=== PATIENT | female | born 1950 | race Caucasian/White ===

== ENCOUNTER 2017-10-31 09:24 | Inpatient (IN) | payer OTHER ==
[~2017-10-31] VITALS: Ht 152.4 cm; Wt 50.3 kg
[2017-10-31] MEDS ORDERED: SODIUM CHLORIDE 0.9% 1,000 ML IV ONE ×2 (09:51→11:31)
[2017-10-31] MEDS ORDERED: PANTOPRAZOLE SODIUM 40 MG/VIAL IV STA (09:51)
[2017-10-31 10:12] LABS: BASOPHILS % 0.3 % (0.0-2.0); EOSINOPHILS % 0.6 % (0.0-5.0); HEMATOCRIT. 23.1 % (36.0-48.0); HEMOGLOBIN. 7.8 g/dL (12.0-16.0); MEAN CORPUSCULAR HEMOGLOBIN 33.7 pg (28.0-32.0); MEAN CORPUSCULAR VOLUME 99.6 fL (81.0-99.0); MEAN PLATELET VOLUME 9.2 fl (7.4-10.4); MONOCYTES % 6.9 % (2.0-8.0); NEUTROPHILS % 74.2 % (40.0-76.0); PLATELET 166 x1000/uL (130-400); RED BLOOD CELL COUNT 2.31 mill/uL (4.2-5.4); RED CELL DISTRIBUTION WIDTH 15.9 % (11.6-14.6)
[2017-10-31 10:18] LABS: CHLORIDE 99 mEq/L (98-107)
[2017-10-31 10:19] LABS: INR 1.1; PROTHROMBIN TIME 11.4 sec (9.4-11.6)
[2017-10-31] MEDS ORDERED: ONDANSETRON HCL 4MG/2ML VIAL IV ONE (10:30)
[2017-10-31 21:20] VITALS: BP 112/52
[2017-11-01] VITALS (19 sets, daily range): BP systolic 87–146; BP diastolic 42–73
[2017-11-01] MEDS ORDERED: DEXTROSE 50% WATER 50ML SYRINGE IV PRN (00:15)
[2017-11-01] MEDS ORDERED: MORPHINE SULFATE 4 MG/ML CPJ (NOT FOR IM USE) IV PRN (00:15)
[2017-11-01] MEDS ORDERED: BLOOD SUGAR DIAGNOSTIC STRIP TEST SCH ×2 (00:20→07:30)
[2017-11-01] MEDS ORDERED: ONDANSETRON HCL 4MG/2ML VIAL IV PRN (00:30)
[2017-11-01] MEDS: ACETAMINOPHEN 650MG/20.3ML UDC PO PRN (00:32)
[2017-11-01] MEDS: SODIUM CHL 0.9% + KCL 20MEQ/L 1,000 ML IV SCH ×2 (00:48→15:20)
[2017-11-01] MEDS ORDERED: LEVOFLOXACIN 500MG PREMIX 100 ML IV SCH (01:00)
[2017-11-01] MEDS: BLOOD SUGAR DIAGNOSTIC STRIP TEST SCH ×5 (01:00→23:26)
[2017-11-01 01:02] LABS: BASOPHILS % 0.1 % (0.0-2.0); EOSINOPHILS % 0.1 % (0.0-5.0); HEMOGLOBIN. 7.2 g/dL (12.0-16.0); LYMPHOCYTES % 10.9 % (20.0-50.0); MEAN CORPUSCULAR HEMOGLOBIN 32.4 pg (28.0-32.0); MEAN PLATELET VOLUME 9.6 fl (7.4-10.4); MONOCYTES % 4.5 % (2.0-8.0); NEUTROPHILS % 84.4 % (40.0-76.0); PLATELET 136 x1000/uL (130-400); RED BLOOD CELL COUNT 2.23 mill/uL (4.2-5.4); RED CELL DISTRIBUTION WIDTH 17.9 % (11.6-14.6)
[2017-11-01] MEDS: INSULIN LISPRO 100 UNITS/ML SUBCUT SCH ×5 (01:09→23:26)
[2017-11-01 01:20] LABS: HEMATOCRIT. 20.9 % (36.0-48.0)
[2017-11-01] MEDS ORDERED: METF850T2 PO (02:56)
[2017-11-01] MEDS ORDERED: ASCO500C18 PO (02:56)
[2017-11-01] MEDS ORDERED: ATOR20TA65 PO (02:56)
[2017-11-01] MEDS ORDERED: ASPI-1159 PO (02:56)
[2017-11-01] MEDS ORDERED: FERR325T6 PO (02:56)
[2017-11-01] MEDS ORDERED: BENA1TAB18 PO (02:56)
[2017-11-01] MEDS ORDERED: INSULIN LISPRO 100 UNITS/ML SUBCUT SCH (08:00)
[2017-11-01] MEDS ORDERED: PANTOPRAZOLE SODIUM 40 MG/VIAL IV SCH (09:00)
[2017-11-01 09:53] LABS: BASOPHILS % 0.2 % (0.0-2.0); EOSINOPHILS % 0.1 % (0.0-5.0); HEMATOCRIT. 30.7 % (36.0-48.0); LYMPHOCYTES % 16.2 % (20.0-50.0); MEAN CORPUSCULAR HEMOGLOBIN 31.8 pg (28.0-32.0); MEAN CORPUSCULAR VOLUME 90.7 fL (81.0-99.0); MEAN PLATELET VOLUME 9.6 fl (7.4-10.4); NEUTROPHILS % 76.5 % (40.0-76.0); PLATELET 108 x1000/uL (130-400); RED BLOOD CELL COUNT 3.39 mill/uL (4.2-5.4); RED CELL DISTRIBUTION WIDTH 17.1 % (11.6-14.6)
[2017-11-01 09:57] LABS: HEMOGLOBIN. 10.8 g/dL (12.0-16.0)
[2017-11-01 10:01] LABS: CHLORIDE 111 mEq/L (98-107)
[2017-11-01 10:08] LABS: LDL CHOLESTEROL 36 mg/dL (5-100)
[2017-11-01 10:09] LABS: HDL CHOLESTEROL 40 mg/dL (40-59)
[2017-11-01] MEDS ORDERED: IOHEXOL-300 100 ML BOTTLE ONE (10:22)
[2017-11-01 10:34] LABS: HEPATITIS B SURFACE ANTIGEN NEGATIVE
[2017-11-01 11:02] LABS: HEPATITIS B CORE AB IGM NEGATIVE
[2017-11-01 11:04] LABS: HEPATITIS A AB IGM NEGATIVE (NEGATIVE)
[2017-11-01] MEDS: METRONIDAZOLE 500 MG PREMIX 100 ML IV SCH ×2 (16:07→21:09)
[2017-11-01 17:44] LABS: HEMATOCRIT 31.3 % (36.0-48.0); HEMOGLOBIN 10.8 g/dL (12.0-16.0)
[2017-11-01 21:23] LABS: TOTAL IRON BINDING CAPACITY 244 ug/dL (250-450)
[2017-11-01 21:57] LABS: FERRITIN 28 ng/mL (10-291)
[2017-11-01 22:07] LABS: HEMATOCRIT 28.6 % (36.0-48.0); HEMOGLOBIN 9.8 g/dL (12.0-16.0)
[2017-11-01 22:23] LABS: FOLIC ACID (FOLATE) SERUM > 20.00 ng/mL (>5.38)
[2017-11-01] MEDS: LEVOFLOXACIN 250MG PREMIX 50 ML IV SCH (23:13)
[2017-11-01] MEDS: PANTOPRAZOLE SODIUM 40 MG/VIAL IV SCH (23:13)
[2017-11-02] VITALS (15 sets, daily range): BP systolic 98–130; BP diastolic 55–69
[2017-11-02 01:09] LABS: HEMATOCRIT 26.1 % (36.0-48.0); HEMOGLOBIN 9.2 g/dL (12.0-16.0)
[2017-11-02] MEDS: METRONIDAZOLE 500 MG PREMIX 100 ML IV SCH ×3 (05:25→21:17)
[2017-11-02] MEDS: BLOOD SUGAR DIAGNOSTIC STRIP TEST SCH ×3 (05:25→17:55)
[2017-11-02] MEDS: INSULIN LISPRO 100 UNITS/ML SUBCUT SCH ×3 (06:00→17:55)
[2017-11-02] MEDS: SODIUM CHL 0.9% + KCL 20MEQ/L 1,000 ML IV SCH ×2 (06:28→21:05)
[2017-11-02 06:32] LABS: INR 1.2; PARTIAL THROMBOPLASTIN TIME 23.6 sec (23.4-31.0); PROTHROMBIN TIME 12.3 sec (9.4-11.6)
[2017-11-02 07:10] LABS: HEMATOCRIT 25.6 % (36.0-48.0); HEMOGLOBIN 8.7 g/dL (12.0-16.0); MEAN CORPUSCULAR HEMOGLOBIN 31.2 pg (28.0-32.0); MEAN CORPUSCULAR VOLUME 91.7 fL (81.0-99.0); PLATELET 90 x1000/uL (130-400); RED CELL DISTRIBUTION WIDTH 18.7 % (11.6-14.6)
[2017-11-02 07:16] LABS: CHLORIDE 116 mEq/L (98-107)
[2017-11-02 07:26] LABS: CREATINE KINASE 111 IU/L (26-192)
[2017-11-02] MEDS: PANTOPRAZOLE SODIUM 40 MG/VIAL IV SCH ×2 (08:50→20:21)
[2017-11-02 13:29] LABS: HEMATOCRIT 25.2 % (36.0-48.0); HEMOGLOBIN 8.9 g/dL (12.0-16.0)
[2017-11-02 17:05] LABS: VITAMIN B12 SERUM 1205 pg/mL (211-911)
[2017-11-02] MEDS ORDERED: MIDAZOLAM HCL 5 MG/5 ML VIAL ONE (18:34)
[2017-11-02] MEDS ORDERED: FENTANYL CITRATE/PF 50MCG/ML 2ML VIAL ONE (18:34)
[2017-11-02] MEDS: ACETAMINOPHEN 650MG/20.3ML UDC PO PRN (20:17)
[2017-11-02 22:41] LABS: HEMATOCRIT 24.8 % (36.0-48.0); HEMOGLOBIN 8.4 g/dL (12.0-16.0)
[2017-11-02] MEDS: LEVOFLOXACIN 250MG PREMIX 50 ML IV SCH (22:55)
[2017-11-02] MEDS ORDERED: OCTREOTIDE ACETATE 50 MCG/ML 1ML IV NR (23:00)
[2017-11-02] MEDS: OCTREOTIDE 1,000 MCG in SODIUM CHLORIDE 0.9% 98 ML IV SCH (23:54)
[2017-11-03] VITALS (13 sets, daily range): BP systolic 108–152; BP diastolic 55–74
[2017-11-03] MEDS: INSULIN LISPRO 100 UNITS/ML SUBCUT SCH ×5 (00:10→23:03)
[2017-11-03] MEDS: ACETAMINOPHEN 650MG/20.3ML UDC PO PRN (01:58)
[2017-11-03] MEDS: METRONIDAZOLE 500 MG PREMIX 100 ML IV SCH ×3 (05:08→21:34)
[2017-11-03 06:30] LABS: INR 1.2; PARTIAL THROMBOPLASTIN TIME 23.4 sec (23.4-31.0); PROTHROMBIN TIME 12.1 sec (9.4-11.6)
[2017-11-03 06:34] LABS: HEMATOCRIT 24.1 % (36.0-48.0); HEMOGLOBIN 8.1 g/dL (12.0-16.0); MEAN CORPUSCULAR HEMOGLOBIN 31.3 pg (28.0-32.0); MEAN CORPUSCULAR VOLUME 93.3 fL (81.0-99.0); PLATELET 95 x1000/uL (130-400); RED BLOOD CELL COUNT 2.59 mill/uL (4.2-5.4); RED CELL DISTRIBUTION WIDTH 18.8 % (11.6-14.6)
[2017-11-03] MEDS: BLOOD SUGAR DIAGNOSTIC STRIP TEST SCH ×5 (07:30→21:34)
[2017-11-03] MEDS: PANTOPRAZOLE SODIUM 40 MG/VIAL IV SCH ×2 (08:31→21:33)
[2017-11-03] MEDS: SODIUM CHL 0.9% + KCL 20MEQ/L 1,000 ML IV SCH ×2 (09:10→21:34)
[2017-11-03 09:56] LABS: CHLORIDE 117 mEq/L (98-107)
[2017-11-03] MEDS ORDERED: MAGNESIUM 1 G PREMIX 100 ML IV NR (13:00)
[2017-11-03 17:13] LABS: HEMATOCRIT 25.4 % (36.0-48.0); HEMOGLOBIN 8.5 g/dL (12.0-16.0)
[2017-11-03 17:23] LABS: AMMONIA 56 uMol/L (<32)
[2017-11-03] MEDS: OCTREOTIDE 1,000 MCG in SODIUM CHLORIDE 0.9% 98 ML IV SCH (17:48)
[2017-11-03 21:09] LABS: HEPATITIS B CORE AB IGM NEGATIVE
[2017-11-03] MEDS: LACTULOSE 20G/30ML UDC PO SCH (21:34)
[2017-11-03] MEDS: LEVOFLOXACIN 250MG PREMIX 50 ML IV SCH (22:31)
[2017-11-04] VITALS (10 sets, daily range): BP systolic 114–148; BP diastolic 59–77
[2017-11-04] MEDS: METRONIDAZOLE 500 MG PREMIX 100 ML IV SCH ×2 (06:03→14:35)
[2017-11-04] MEDS: LACTULOSE 20G/30ML UDC PO SCH ×3 (06:03→20:44)
[2017-11-04 07:39] LABS: HEMATOCRIT 24.5 % (36.0-48.0); HEMOGLOBIN 8.5 g/dL (12.0-16.0); MEAN CORPUSCULAR HEMOGLOBIN 32.3 pg (28.0-32.0); MEAN CORPUSCULAR VOLUME 93.4 fL (81.0-99.0); PLATELET 132 x1000/uL (130-400); RED BLOOD CELL COUNT 2.62 mill/uL (4.2-5.4); RED CELL DISTRIBUTION WIDTH 18.3 % (11.6-14.6)
[2017-11-04 07:49] LABS: CHLORIDE 116 mEq/L (98-107)
[2017-11-04] MEDS: INSULIN LISPRO 100 UNITS/ML SUBCUT SCH ×4 (08:00→20:47)
[2017-11-04] MEDS: BLOOD SUGAR DIAGNOSTIC STRIP TEST SCH ×4 (08:00→20:47)
[2017-11-04 08:35] LABS: AMMONIA 35 uMol/L (<32)
[2017-11-04] MEDS: PANTOPRAZOLE SODIUM 40 MG/VIAL IV SCH ×2 (09:25→20:44)
[2017-11-04 13:08] LABS: FECAL FAT NEUTRAL Normal (.); FECAL FAT TOTAL Normal (.)
[2017-11-04] MEDS: PROPRANOLOL HCL 10MG TABLET PO SCH (13:09)
[2017-11-04 15:12] LABS: ATYPICAL pANCA <1:20 titer (Neg:<1:20)
[2017-11-04] MEDS: SODIUM CHL 0.9% + KCL 20MEQ/L 1,000 ML IV SCH (16:43)
[2017-11-04] MEDS: OCTREOTIDE 1,000 MCG in SODIUM CHLORIDE 0.9% 98 ML IV SCH (17:55)
[2017-11-05] VITALS (10 sets, daily range): BP systolic 99–142; BP diastolic 48–79
[2017-11-05] MEDS: LEVOFLOXACIN 250MG PREMIX 50 ML IV SCH (01:54)
[2017-11-05] MEDS: METRONIDAZOLE 500 MG PREMIX 100 ML IV SCH ×3 (01:54→13:03)
[2017-11-05 04:15] LABS: OVA & PARASITE EXAM Final report (.)
[2017-11-05] MEDS: LACTULOSE 20G/30ML UDC PO SCH (05:28)
[2017-11-05 06:17] LABS: AMMONIA 19 uMol/L (<32)
[2017-11-05 07:26] LABS: HEMATOCRIT 23.5 % (36.0-48.0); MEAN CORPUSCULAR HEMOGLOBIN 31.9 pg (28.0-32.0); PLATELET 141 x1000/uL (130-400); RED CELL DISTRIBUTION WIDTH 18.7 % (11.6-14.6)
[2017-11-05] MEDS: INSULIN LISPRO 100 UNITS/ML SUBCUT SCH ×2 (07:30→13:05)
[2017-11-05 07:34] LABS: CHLORIDE 117 mEq/L (98-107)
[2017-11-05] MEDS: BLOOD SUGAR DIAGNOSTIC STRIP TEST SCH ×2 (07:42→12:31)
[2017-11-05] MEDS ORDERED: PROPRANOLOL HCL 10MG TABLET PO SCH (09:00)
[2017-11-05] MEDS: PROPRANOLOL HCL 10MG TABLET PO SCH (09:37)
[2017-11-05] MEDS: PANTOPRAZOLE SODIUM 40 MG/VIAL IV SCH (09:37)
[2017-11-05] MEDS: SODIUM CHL 0.9% + KCL 20MEQ/L 1,000 ML IV SCH (13:03)
[2017-11-05 13:06] LABS: SACCHAROMYCES CEREVISIAE IGM 152.9 Units (0.0-24.9)
[2017-11-05 13:09] LABS: HEMATOCRIT 24.1 % (36.0-48.0)
[2017-11-06 19:07] LABS: ANTI-NUCLEAR ANTIBODIES DIRECT Positive (Negative)
[2017-11-08 13:07] LABS: MITOCHONDRIAL M2 AB 120.8 Units (0.0-20.0)
== END 2017-11-05 17:10 | disposition home or self-care (01) | DRG 432 ==
LOC: ER 09:24 → 5EST 11:31 → EDBEDREQ 16:34 → EDBEDREQTM 16:34 → ENRESERV 19:46 → EDBEDREQ 21:15 → EDBEDREQTM 21:16
PROVIDERS: ADMIT Internal Medicine; ATTEND Internal Medicine
PROC: 30233N1 Transfusion of Nonautologous Red Blood Cells into Peripheral Vein, Percutaneous Approach (ICD-10-PCS; principal; 2017-10-31)
PROC: 06L38CZ Occlusion of Esophageal Vein with Extraluminal Device, Via Natural or Artificial Opening Endoscopic (ICD-10-PCS; 2017-11-02)
PROC: 0DB68ZX Excision of Stomach, Via Natural or Artificial Opening Endoscopic, Diagnostic (ICD-10-PCS; 2017-11-02)
DX: K74.60 Unspecified cirrhosis of liver (principal); I85.01 Esophageal varices with bleeding; E43 Unspecified severe protein-calorie malnutrition; K76.6 Portal hypertension; E72.20 Disorder of urea cycle metabolism, unspecified; K25.4 Chronic or unspecified gastric ulcer with hemorrhage; R18.8 Other ascites; E11.319 Type 2 diabetes mellitus with unspecified diabetic retinopathy without macular edema; E83.42 Hypomagnesemia; D64.9 Anemia, unspecified; K52.9 Noninfective gastroenteritis and colitis, unspecified; H54.62 Unqualified visual loss, left eye, normal vision right eye; I10 Essential (primary) hypertension; M19.90 Unspecified osteoarthritis, unspecified site; E78.5 Hyperlipidemia, unspecified; K44.9 Diaphragmatic hernia without obstruction or gangrene; K57.90 Diverticulosis of intestine, part unspecified, without perforation or abscess without bleeding; E11.36 Type 2 diabetes mellitus with diabetic cataract; E78.00 Pure hypercholesterolemia, unspecified; E86.9 Volume depletion, unspecified; H91.90 Unspecified hearing loss, unspecified ear; K31.9 Disease of stomach and duodenum, unspecified; K40.90 Unilateral inguinal hernia, without obstruction or gangrene, not specified as recurrent; Z79.82 Long term (current) use of aspirin; Z86.010 Personal history of colon polyps; Z79.84 Long term (current) use of oral hypoglycemic drugs; Z79.899 Other long term (current) drug therapy; G90.8 Other disorders of autonomic nervous system
CPT/HCPCS: 36415; 36430; 70450; 71045; 74178; 76700; 78278; 80048; 80053; 80061; 80076; 82140; 82248; 82270; 82390; 82550; 82607; 82705; 82728; 82746; 82962; 83036; 83516; 83540; 83550; 83690; 83735; 84443; 84484; 85014; 85018; 85025; 85027; 85044; 85610; 85730; 86038; 86256; 86671; 86705; 86709; 86803; 86850; 86900; 86920; 87040; 87177; 87209; 87340; 87493; 88305; 88313; 89055; 93005; 93306; 96361; 96374; 96375; 99291; A9560; C9113; J1815; J1956; J2250; J2354; J2405; J3010; J3475; J3480; J3490; J7030; J7050; P9016; Q9967

== ENCOUNTER 2020-01-15 01:44 | Emergency (ER) | payer MEDICARE, OTHER ==
[~2020-01-15] VITALS: Ht 152.4 cm; Wt 50.0 kg
[~2020-01-15 01:44] MED LIST: ASCO500C18 PO; ATOR20TA65 PO; BENA1TAB18 PO; FERR325T6 PO; METF-415 PO
[2020-01-15] MEDS ORDERED: FAMOTIDINE 20MG/2ML VIAL IV STA (02:07)
[2020-01-15 02:47] LABS: BASOPHILS % 0.3 % (0.0-2.0); EOSINOPHILS % 2.5 % (0.0-5.0); HEMATOCRIT. 30.6 % (36.0-48.0); HEMOGLOBIN. 10.9 g/dL (12.0-16.0); LYMPHOCYTES % 28.8 % (20.0-50.0); MEAN CORPUSCULAR HEMOGLOBIN 36.8 pg (28.0-32.0); MEAN CORPUSCULAR VOLUME 103.1 fL (81.0-99.0); MEAN PLATELET VOLUME 9.4 fl (7.4-10.4); MONOCYTES % 13.3 % (2.0-8.0); NEUTROPHILS % 55.1 % (40.0-76.0); PLATELET 90 x1000/uL (130-400); RED BLOOD CELL COUNT 2.97 mill/uL (4.2-5.4); RED CELL DISTRIBUTION WIDTH 14.5 % (11.6-14.6)
[2020-01-15 02:51] LABS: CHLORIDE 104 mEq/L (98-107)
[2020-01-15 02:54] LABS: INR 1.2; PROTHROMBIN TIME 12.1 sec (9.6-11.0)
[2020-01-15 02:56] LABS: ETHANOL BLOOD < 10 mg/dL
[2020-01-15 03:31] LABS: CLARITY URINE CLEAR (CLEAR); COLOR URINE YELLOW (YELLOW); KETONES URINE NEGATIVE (NEGATIVE); LEUKOCYTE ESTERASE URINE NEGATIVE (NEGATIVE); NITRITE URINE NEGATIVE (NEGATIVE); OCCULT BLOOD URINE 2+ (NEGATIVE); PROTEIN URINE NEGATIVE (NEGATIVE); SPECIFIC GRAVITY URINE 1.004 (1.005-1.030); UROBILINOGEN URINE 0.2 E.U./dL (0.2-1.0)
[2020-01-15 03:34] LABS: *AMPHETAMINES SCREEN URINE NEGATIVE (NEGATIVE); *BARBITURATES SCREEN URINE NEGATIVE (NEGATIVE); *BENZODIAZEPINES SCREEN URINE NEGATIVE (NEGATIVE)
[2020-01-15 03:35] LABS: *COCAINE SCREEN URINE NEGATIVE (NEGATIVE); CANNABINOID URINE SCREEN NEGATIVE (NEGATIVE); METHADONE URINE SCREEN NEGATIVE (NEGATIVE); OPIATES URINE SCREEN NEGATIVE (NEGATIVE); PHENCYCLIDINE URINE SCREEN NEGATIVE (NEGATIVE)
[2020-01-15 05:00] VITALS: BP 155/71
== END 2020-01-15 05:02 | disposition home or self-care (01) ==
LOC: ER 01:44
DX: R11.2 Nausea with vomiting, unspecified (principal); D64.9 Anemia, unspecified; H26.9 Unspecified cataract; H54.7 Unspecified visual loss; E11.9 Type 2 diabetes mellitus without complications
CPT/HCPCS: 36415; 71045; 80053; 80305; 80320; 81003; 83605; 83690; 83880; 84484; 85025; 85610; 93005; 96374; 99285; J3490; G0480

== ENCOUNTER 2021-10-28 15:42 | Inpatient (IN) | payer MEDICARE ==
[~2021-10-28] VITALS: Ht 152.4 cm; Wt 46.7 kg
[~2021-10-28 15:42] MED LIST changes: +LACT10SO6 MT; +LOSA50TA41 PO; +URSO300C4 PO
[2021-10-28 18:36] LABS: BASOPHILS % 0.4 % (0.0-2.0); EOSINOPHILS % 5.9 % (0.0-5.0); HEMATOCRIT. 25.4 % (36.0-48.0); HEMOGLOBIN. 8.1 g/dL (12.0-16.0); LYMPHOCYTES % 21.2 % (20.0-50.0); MEAN CORPUSCULAR HEMOGLOBIN 35.7 pg (28.0-32.0); MEAN PLATELET VOLUME 9.1 fl (7.4-10.4); MONOCYTES % 10.9 % (2.0-8.0); NEUTROPHILS % 61.6 % (40.0-76.0); PLATELET 89 x1000/uL (130-400); RED BLOOD CELL COUNT 2.27 mill/uL (4.2-5.4)
[2021-10-28 18:50] LABS: CHLORIDE 118 mEq/L (98-107)
[2021-10-28 19:17] LABS: PLATELET ESTIMATE DECREASED
[2021-10-28 19:27] LABS: BG BASE EXCESS -20.8 mmol/L (-2.0-2.0); BG CARBOXYHEMOGLOBIN 0.2 % (0.5-1.5); BG FRACTION INSPIRED OXYGEN 36; BG HCO3 ACT 5.8 mmol/L (22.0-26.0); BG METHEMOGLOBIN 0.7 % (0.0-1.5); BG OXYHEMOGLOBIN 98.1 % (94.0-97.0); BG PCO2 16.5 mmHg (35.0-45.0); BG PH 7.167 (7.350-7.450); BG PO2 202.1 mmHg (75.0-100.0); BG SAMPLE SITE RIGHT BRACHIAL; BG TOTAL HEMOGLOBIN 8.3 g/dL (12.0-18.0); BG VENT MODE NASAL CANNULA
[2021-10-28] MEDS ORDERED: ASPIRIN 325MG EC TABLET PO ONE (20:45)
[2021-10-28 21:21] LABS: BG BASE EXCESS -20.1 mmol/L (-2.0-2.0); BG CARBOXYHEMOGLOBIN 0.3 % (0.5-1.5); BG DEOXYHEMOGLOBIN 0.4 % (0.0-5.0); BG FRACTION INSPIRED OXYGEN 100; BG HCO3 ACT 6.5 mmol/L (22.0-26.0); BG METHEMOGLOBIN 0.4 % (0.0-1.5); BG OXYGEN SATURATION 99.6 % (92.0-98.5); BG OXYHEMOGLOBIN 98.9 % (94.0-97.0); BG PCO2 18.3 mmHg (35.0-45.0); BG PH 7.171 (7.350-7.450); BG TOTAL HEMOGLOBIN 8.3 g/dL (12.0-18.0); BG VENT MODE MASK - BIPAP
[2021-10-28] MEDS ORDERED: VANCOMYCIN 1G PREMIX 200 ML IV ONE (21:45)
[2021-10-28] MEDS ORDERED: PIPERACILLIN/TAZ 3.375G PREMIX 50 ML IV ONE (21:45)
[2021-10-28] MEDS ORDERED: VANCOMYCIN 1GM PMX (XELLIA) 200 ML IV NR (22:00)
[2021-10-28 22:30] VITALS: BP 155/73
[2021-10-28 23:00] VITALS: BP 152/64
[2021-10-28] MEDS ORDERED: DEXTROSE 50% WATER 50ML SYRINGE IV PRN (23:30)
[2021-10-28] MEDS ORDERED: TRAMADOL 50MG TABLET PO PRN (23:30)
[2021-10-28] MEDS ORDERED: CLONIDINE 0.1MG TABLET PO PRN (23:30)
[2021-10-28] MEDS ORDERED: SODIUM BICARBONATE 8.4% 1 MEQ/ML 50ML SYR IV NR (23:30)
[2021-10-29] VITALS (12 sets, daily range): BP systolic 108–150; BP diastolic 54–80
[2021-10-29] MEDS ORDERED: VANCOMYCIN 1GM PMX (XELLIA) 200 ML IV NR (00:30)
[2021-10-29] MEDS: SODIUM BICARBONATE 150 MEQ in SODIUM CHLORIDE 0.45% 1,000 ML IV SCH ×2 (01:30→18:22)
[2021-10-29 06:53] LABS: BASOPHILS % 0.4 % (0.0-2.0); EOSINOPHILS % 7.3 % (0.0-5.0); HEMATOCRIT. 23.6 % (36.0-48.0); HEMOGLOBIN. 7.7 g/dL (12.0-16.0); LYMPHOCYTES % 17.6 % (20.0-50.0); MEAN CORPUSCULAR HEMOGLOBIN 35.9 pg (28.0-32.0); MEAN CORPUSCULAR VOLUME 110.3 fL (81.0-99.0); MEAN PLATELET VOLUME 9.3 fl (7.4-10.4); MONOCYTES % 13.4 % (2.0-8.0); NEUTROPHILS % 61.3 % (40.0-76.0); PLATELET 70 x1000/uL (130-400); RED BLOOD CELL COUNT 2.14 mill/uL (4.2-5.4); RED CELL DISTRIBUTION WIDTH 16.5 % (11.6-14.6)
[2021-10-29 06:53] LABS: CLARITY URINE CLEAR (CLEAR); COLOR URINE YELLOW (YELLOW); KETONES URINE TRACE (NEGATIVE); LEUKOCYTE ESTERASE URINE TRACE (NEGATIVE); NITRITE URINE NEGATIVE (NEGATIVE); OCCULT BLOOD URINE 2+ (NEGATIVE); PROTEIN URINE 2+ (NEGATIVE); SPECIFIC GRAVITY URINE 1.016 (1.005-1.030); UROBILINOGEN URINE 0.2 E.U./dL (0.2-1.0)
[2021-10-29 07:10] LABS: CHLORIDE 120 mEq/L (98-107)
[2021-10-29] MEDS: PIPERACILLIN/TAZOBACTAM 3.375 G in DEXTROSE 5% WATER 50 ML IV SCH ×2 (08:55→22:44)
[2021-10-29 09:33] LABS: BG BASE EXCESS -14.7 mmol/L (-2.0-2.0); BG CARBOXYHEMOGLOBIN 0.3 % (0.5-1.5); BG DEOXYHEMOGLOBIN 0.5 % (0.0-5.0); BG HCO3 ACT 9.5 mmol/L (22.0-26.0); BG METHEMOGLOBIN 0.3 % (0.0-1.5); BG OXYGEN SATURATION 99.5 % (92.0-98.5); BG OXYHEMOGLOBIN 98.9 % (94.0-97.0); BG PCO2 17.9 mmHg (35.0-45.0); BG PH 7.341 (7.350-7.450); BG PO2 258.1 mmHg (75.0-100.0); BG SAMPLE SITE RIGHT RADIAL; BG TOTAL HEMOGLOBIN 7.3 g/dL (12.0-18.0); BG TOTAL RESPIRATORY RATE 20 b/min; BG VENT MODE MASK - BIPAP
[2021-10-29 12:14] LABS: HEMATOCRIT 25.4 % (36.0-48.0); HEMOGLOBIN 8.1 g/dL (12.0-16.0)
[2021-10-29 12:24] LABS: INR 1.2; PROTHROMBIN TIME 13.1 sec (9.6-11.0)
[2021-10-29] MEDS: INSULIN LISPRO 100 UNITS/ML SUBCUT SCH ×3 (12:38→22:08)
[2021-10-29] MEDS: BLOOD SUGAR DIAGNOSTIC STRIP TEST SCH ×4 (12:38→22:06)
[2021-10-29] MEDS ORDERED: HYDROCODONE/ACETAMINOPHEN 5/325MG TABLET PO PRN (13:00)
[2021-10-29] MEDS ORDERED: LACTULOSE 20G/30ML UDC PO SCH (13:00)
[2021-10-29] MEDS ORDERED: LORAZEPAM 2MG/ML CPJ IV PRN (13:00)
[2021-10-29] MEDS ORDERED: BISACODYL 10MG SUPP PR PRN (13:00)
[2021-10-29] MEDS ORDERED: IPRATROPIUM/ALBUTEROL 0.5-3(2.5)MG/3ML NEB HHN PRN (13:00)
[2021-10-29] MEDS: CIPROFLOXACIN 0.3% OPHTH SOLN 2.5ML LEFTEYE SCH ×2 (16:33→22:05)
[2021-10-29] MEDS: PANTOPRAZOLE SODIUM 40 MG/VIAL IV SCH (16:51)
[2021-10-29] MEDS ORDERED: NALOXONE HCL 0.4MG/ML VIAL IV PRN (18:00)
[2021-10-29] MEDS: LACTULOSE 20G/30ML UDC PO SCH (22:44)
[2021-10-30] VITALS (10 sets, daily range): BP systolic 92–139; BP diastolic 43–66
[2021-10-30] MEDS: LACTULOSE 20G/30ML UDC PO SCH ×4 (06:08→22:00)
[2021-10-30] MEDS: BLOOD SUGAR DIAGNOSTIC STRIP TEST SCH ×4 (07:30→21:43)
[2021-10-30 07:32] LABS: BASOPHILS % 0.5 % (0.0-2.0); EOSINOPHILS % 3.6 % (0.0-5.0); HEMATOCRIT. 22.8 % (36.0-48.0); HEMOGLOBIN. 7.5 g/dL (12.0-16.0); MEAN CORPUSCULAR HEMOGLOBIN 36.1 pg (28.0-32.0); MEAN CORPUSCULAR VOLUME 109.2 fL (81.0-99.0); MEAN PLATELET VOLUME 9.6 fl (7.4-10.4); MONOCYTES % 13.4 % (2.0-8.0); NEUTROPHILS % 64.5 % (40.0-76.0); PLATELET 75 x1000/uL (130-400); RED BLOOD CELL COUNT 2.09 mill/uL (4.2-5.4); RED CELL DISTRIBUTION WIDTH 15.8 % (11.6-14.6)
[2021-10-30] MEDS: INSULIN LISPRO 100 UNITS/ML SUBCUT SCH ×4 (08:00→21:57)
[2021-10-30] MEDS: PANTOPRAZOLE SODIUM 40 MG/VIAL IV SCH (08:06)
[2021-10-30] MEDS: CIPROFLOXACIN 0.3% OPHTH SOLN 2.5ML LEFTEYE SCH ×4 (08:07→21:43)
[2021-10-30] MEDS: PIPERACILLIN/TAZOBACTAM 3.375 G in DEXTROSE 5% WATER 50 ML IV SCH ×2 (08:07→21:42)
[2021-10-30] MEDS ORDERED: LIDOCAINE HCL 1% 10 MG/ML 10ML VIAL ONE (09:24)
[2021-10-30] MEDS ORDERED: SODIUM BICARBONATE 4% (2.4MEQ) 5ML VIAL IV ONE (09:25)
[2021-10-30 10:06] LABS: BG BASE EXCESS -10.4 mmol/L (-2.0-2.0); BG CARBOXYHEMOGLOBIN 0.3 % (0.5-1.5); BG DEOXYHEMOGLOBIN 1.8 % (0.0-5.0); BG FRACTION INSPIRED OXYGEN 21; BG HCO3 ACT 13.5 mmol/L (22.0-26.0); BG METHEMOGLOBIN 0.3 % (0.0-1.5); BG OXYGEN SATURATION 98.2 % (92.0-98.5); BG OXYHEMOGLOBIN 97.6 % (94.0-97.0); BG PCO2 22.8 mmHg (35.0-45.0); BG PH 7.389 (7.350-7.450); BG PO2 113.4 mmHg (75.0-100.0); BG SAMPLE SITE RIGHT RADIAL; BG VENT MODE ROOM AIR
[2021-10-30] MEDS ORDERED: SUCRALFATE 1 G/10 ML UDC PO NR (13:00)
[2021-10-30] MEDS: SODIUM BICARBONATE 150 MEQ in SODIUM CHLORIDE 0.45% 1,000 ML IV SCH (13:38)
[2021-10-30] MEDS ORDERED: VANCOMYCIN 500 MG in DEXT 5% WATER 100 ML IV SCH (18:00)
[2021-10-30] MEDS: IPRATROPIUM/ALBUTEROL 0.5-3(2.5)MG/3ML NEB HHN SCH (21:25)
[2021-10-31] VITALS (11 sets, daily range): BP systolic 107–149; BP diastolic 47–83
[2021-10-31] MEDS: IPRATROPIUM/ALBUTEROL 0.5-3(2.5)MG/3ML NEB HHN SCH ×4 (00:52→18:00)
[2021-10-31] MEDS: SODIUM BICARBONATE 150 MEQ in SODIUM CHLORIDE 0.45% 1,000 ML IV SCH ×2 (04:31→09:33)
[2021-10-31] MEDS: LACTULOSE 20G/30ML UDC PO SCH ×4 (04:31→22:32)
[2021-10-31 06:43] LABS: MEAN CORPUSCULAR HEMOGLOBIN 35.7 pg (28.0-32.0); MEAN CORPUSCULAR VOLUME 104.7 fL (81.0-99.0); MEAN PLATELET VOLUME 9.3 fl (7.4-10.4); PLATELET 57 x1000/uL (130-400); RED CELL DISTRIBUTION WIDTH 15.7 % (11.6-14.6)
[2021-10-31] MEDS: BLOOD SUGAR DIAGNOSTIC STRIP TEST SCH ×4 (07:30→21:50)
[2021-10-31 07:34] LABS: HEMATOCRIT. 19.9 % (36.0-48.0); HEMOGLOBIN. 6.8 g/dL (12.0-16.0)
[2021-10-31] MEDS: INSULIN LISPRO 100 UNITS/ML SUBCUT SCH ×4 (08:00→21:00)
[2021-10-31] MEDS ORDERED: POTASSIUM CHLORIDE 20MEQ TABLET SR PO SCH (09:00)
[2021-10-31] MEDS: PANTOPRAZOLE SODIUM 40 MG/VIAL IV SCH ×2 (09:30→21:50)
[2021-10-31] MEDS: CIPROFLOXACIN 0.3% OPHTH SOLN 2.5ML LEFTEYE SCH ×4 (09:30→21:50)
[2021-10-31] MEDS: PIPERACILLIN/TAZOBACTAM 3.375 G in DEXTROSE 5% WATER 50 ML IV SCH ×2 (09:31→21:50)
[2021-10-31] MEDS: DEXTROSE 5% WATER 1,000 ML IV SCH (11:40)
[2021-10-31 16:10] LABS: TOTAL IRON BINDING CAPACITY 200 ug/dL (250-450)
[2021-10-31 16:28] LABS: FOLIC ACID (FOLATE) SERUM >20 ng/mL ng/mL (>5.38)
[2021-10-31 16:32] LABS: FERRITIN 135 ng/mL (10-291)
[2021-10-31 16:40] LABS: VITAMIN B12 SERUM >2000 pg/mL pg/mL (211-911)
[2021-10-31] MEDS: OCTREOTIDE 1,000 MCG in SODIUM CHLORIDE 0.9% 98 ML IV SCH (18:59)
[2021-10-31 21:21] LABS: PLATELET ESTIMATE DECREASED
[2021-11-01] VITALS (8 sets, daily range): BP systolic 103–144; BP diastolic 57–77
[2021-11-01 03:03] LABS: HEMATOCRIT 28.3 % (36.0-48.0); HEMOGLOBIN 9.4 g/dL (12.0-16.0)
[2021-11-01] MEDS: LACTULOSE 20G/30ML UDC PO SCH ×3 (05:40→17:29)
[2021-11-01] MEDS: BLOOD SUGAR DIAGNOSTIC STRIP TEST SCH ×4 (07:30→21:00)
[2021-11-01] MEDS: INSULIN LISPRO 100 UNITS/ML SUBCUT SCH ×4 (08:00→21:56)
[2021-11-01 08:11] LABS: HEMATOCRIT. 29.4 % (36.0-48.0); HEMOGLOBIN. 9.9 g/dL (12.0-16.0); MEAN CORPUSCULAR HEMOGLOBIN 34.5 pg (28.0-32.0); MEAN CORPUSCULAR VOLUME 103.1 fL (81.0-99.0); MEAN PLATELET VOLUME 8.7 fl (7.4-10.4); PLATELET 55 x1000/uL (130-400); RED BLOOD CELL COUNT 2.86 mill/uL (4.2-5.4); RED CELL DISTRIBUTION WIDTH 18.7 % (11.6-14.6)
[2021-11-01] MEDS: PANTOPRAZOLE SODIUM 40 MG/VIAL IV SCH ×2 (08:48→21:54)
[2021-11-01] MEDS: PIPERACILLIN/TAZOBACTAM 3.375 G in DEXTROSE 5% WATER 50 ML IV SCH ×2 (08:49→21:54)
[2021-11-01] MEDS: CIPROFLOXACIN 0.3% OPHTH SOLN 2.5ML LEFTEYE SCH ×4 (08:49→21:54)
[2021-11-01] MEDS: IPRATROPIUM/ALBUTEROL 0.5-3(2.5)MG/3ML NEB HHN SCH ×4 (09:05→21:04)
[2021-11-01 12:14] LABS: HEMATOCRIT 30.5 % (36.0-48.0); HEMOGLOBIN 10.1 g/dL (12.0-16.0)
[2021-11-01] MEDS: OCTREOTIDE 1,000 MCG in SODIUM CHLORIDE 0.9% 98 ML IV SCH (13:07)
[2021-11-01 13:38] LABS: PLATELET ESTIMATE DECREASED
[2021-11-01 20:50] LABS: HEMATOCRIT 29.9 % (36.0-48.0); HEMOGLOBIN 9.9 g/dL (12.0-16.0)
[2021-11-02] VITALS (7 sets, daily range): BP systolic 117–141; BP diastolic 51–87
[2021-11-02 00:54] LABS: HEMATOCRIT 30.1 % (36.0-48.0)
[2021-11-02] MEDS: IPRATROPIUM/ALBUTEROL 0.5-3(2.5)MG/3ML NEB HHN SCH ×4 (02:42→20:36)
[2021-11-02] MEDS: DEXTROSE 5% WATER 1,000 ML IV SCH (04:20)
[2021-11-02 06:35] LABS: BASOPHILS % 0.6 % (0.0-2.0); EOSINOPHILS % 6.3 % (0.0-5.0); HEMATOCRIT. 28.3 % (36.0-48.0); HEMOGLOBIN. 9.4 g/dL (12.0-16.0); MEAN CORPUSCULAR HEMOGLOBIN 34.2 pg (28.0-32.0); MEAN CORPUSCULAR VOLUME 103.4 fL (81.0-99.0); MEAN PLATELET VOLUME 9.8 fl (7.4-10.4); MONOCYTES % 12.6 % (2.0-8.0); NEUTROPHILS % 67.5 % (40.0-76.0); PLATELET 57 x1000/uL (130-400); RED BLOOD CELL COUNT 2.73 mill/uL (4.2-5.4); RED CELL DISTRIBUTION WIDTH 19.5 % (11.6-14.6)
[2021-11-02] MEDS: BLOOD SUGAR DIAGNOSTIC STRIP TEST SCH ×4 (07:30→20:38)
[2021-11-02] MEDS: INSULIN LISPRO 100 UNITS/ML SUBCUT SCH ×4 (08:00→20:39)
[2021-11-02] MEDS: OCTREOTIDE 1,000 MCG in SODIUM CHLORIDE 0.9% 98 ML IV SCH (09:30)
[2021-11-02] MEDS: PIPERACILLIN/TAZOBACTAM 3.375 G in DEXTROSE 5% WATER 50 ML IV SCH ×2 (09:30→21:58)
[2021-11-02] MEDS: PANTOPRAZOLE SODIUM 40 MG/VIAL IV SCH ×2 (09:31→21:57)
[2021-11-02] MEDS: CIPROFLOXACIN 0.3% OPHTH SOLN 2.5ML LEFTEYE SCH ×4 (09:31→21:56)
[2021-11-02] MEDS: LACTULOSE 20G/30ML UDC PO SCH ×3 (09:31→21:58)
[2021-11-02 12:45] LABS: HEMATOCRIT 33.5 % (36.0-48.0)
[2021-11-02] MEDS ORDERED: NA PHOS,M-B/NA PHOS,DI-BA ENEMA 118ML PR SCH (13:00)
[2021-11-02 14:17] LABS: BG BASE EXCESS -8.3 mmol/L (-2.0-2.0); BG CARBOXYHEMOGLOBIN 0.3 % (0.5-1.5); BG FRACTION INSPIRED OXYGEN 21; BG HCO3 ACT 15.5 mmol/L (22.0-26.0); BG METHEMOGLOBIN 0.1 % (0.0-1.5); BG OXYHEMOGLOBIN 95.6 % (94.0-97.0); BG PCO2 27.2 mmHg (35.0-45.0); BG PH 7.375 (7.350-7.450); BG PO2 85.3 mmHg (75.0-100.0); BG SAMPLE SITE RIGHT RADIAL; BG TOTAL HEMOGLOBIN 10.9 g/dL (12.0-18.0); BG VENT MODE ROOM AIR
[2021-11-02] MEDS ORDERED: FUROSEMIDE 40MG/4ML VIAL IVP NR (16:00)
[2021-11-02] MEDS: ALBUMIN HUMAN 12.5GM/50ML (25%) IV SCH (21:57)
[2021-11-03] VITALS (9 sets, daily range): BP systolic 103–132; BP diastolic 52–73
[2021-11-03] MEDS: IPRATROPIUM/ALBUTEROL 0.5-3(2.5)MG/3ML NEB HHN SCH ×4 (02:15→21:42)
[2021-11-03] MEDS: OCTREOTIDE 1,000 MCG in SODIUM CHLORIDE 0.9% 98 ML IV SCH (05:00)
[2021-11-03 05:36] LABS: HEMATOCRIT. 28.1 % (36.0-48.0); HEMOGLOBIN. 9.4 g/dL (12.0-16.0); MEAN CORPUSCULAR VOLUME 102.1 fL (81.0-99.0); MEAN PLATELET VOLUME 8.7 fl (7.4-10.4); PLATELET 51 x1000/uL (130-400); RED BLOOD CELL COUNT 2.75 mill/uL (4.2-5.4); RED CELL DISTRIBUTION WIDTH 18.7 % (11.6-14.6)
[2021-11-03 05:43] LABS: CHLORIDE 112 mEq/L (98-107)
[2021-11-03] MEDS: LACTULOSE 20G/30ML UDC PO SCH ×3 (06:00→21:20)
[2021-11-03 06:06] LABS: INR 1.4; PROTHROMBIN TIME 14.3 sec (9.6-11.0)
[2021-11-03] MEDS: BLOOD SUGAR DIAGNOSTIC STRIP TEST SCH ×4 (07:57→21:21)
[2021-11-03] MEDS: INSULIN LISPRO 100 UNITS/ML SUBCUT SCH ×4 (08:00→21:00)
[2021-11-03] MEDS: PANTOPRAZOLE SODIUM 40 MG/VIAL IV SCH ×2 (08:31→21:21)
[2021-11-03] MEDS: PIPERACILLIN/TAZOBACTAM 3.375 G in DEXTROSE 5% WATER 50 ML IV SCH ×2 (08:31→21:20)
[2021-11-03] MEDS: CIPROFLOXACIN 0.3% OPHTH SOLN 2.5ML LEFTEYE SCH ×4 (08:31→21:21)
[2021-11-03] MEDS: ALBUMIN HUMAN 12.5GM/50ML (25%) IV SCH ×2 (12:31→21:21)
[2021-11-03 14:04] LABS: NUCLEATED RED BLOOD CELLS 1 /100 WBC; PLATELET ESTIMATE MARKEDLY DECREASED
[2021-11-03] MEDS ORDERED: PROPOFOL 200MG/20ML VIAL IV ONE (17:25)
[2021-11-03] MEDS ORDERED: MIDAZOLAM HCL 2 MG/2 ML VIAL ONE ×2 (17:27)
[2021-11-04] VITALS (9 sets, daily range): BP systolic 108–149; BP diastolic 58–82
[2021-11-04] MEDS: IPRATROPIUM/ALBUTEROL 0.5-3(2.5)MG/3ML NEB HHN SCH ×4 (02:21→21:16)
[2021-11-04] MEDS: LACTULOSE 20G/30ML UDC PO SCH ×3 (05:49→21:43)
[2021-11-04] MEDS: BLOOD SUGAR DIAGNOSTIC STRIP TEST SCH ×4 (07:30→21:00)
[2021-11-04] MEDS: INSULIN LISPRO 100 UNITS/ML SUBCUT SCH ×4 (08:00→20:46)
[2021-11-04] MEDS: PANTOPRAZOLE SODIUM 40 MG/VIAL IV SCH ×2 (09:00→20:12)
[2021-11-04] MEDS: ALBUMIN HUMAN 12.5GM/50ML (25%) IV SCH ×4 (09:00→20:13)
[2021-11-04] MEDS: CIPROFLOXACIN 0.3% OPHTH SOLN 2.5ML LEFTEYE SCH ×4 (09:02→20:13)
[2021-11-04 10:51] LABS: BASOPHILS % 0.4 % (0.0-2.0); EOSINOPHILS % 9.8 % (0.0-5.0); HEMATOCRIT. 27.5 % (36.0-48.0); HEMOGLOBIN. 9.1 g/dL (12.0-16.0); LYMPHOCYTES % 12.6 % (20.0-50.0); MEAN CORPUSCULAR HEMOGLOBIN 34.1 pg (28.0-32.0); MEAN CORPUSCULAR VOLUME 103.4 fL (81.0-99.0); MEAN PLATELET VOLUME 8.6 fl (7.4-10.4); MONOCYTES % 12.9 % (2.0-8.0); NEUTROPHILS % 64.3 % (40.0-76.0); RED BLOOD CELL COUNT 2.66 mill/uL (4.2-5.4)
[2021-11-04 10:55] LABS: CHLORIDE 112 mEq/L (98-107)
[2021-11-04 13:18] LABS: PLATELET ESTIMATE MARKEDLY DECREASED
[2021-11-04 13:19] LABS: PLATELET 40 x1000/uL (130-400)
[2021-11-04] MEDS ORDERED: LIDOCAINE HCL 1% 20ML VIAL (Pyxis) INJ ONE (14:01)
[2021-11-04] MEDS ORDERED: LIDOCAINE HCL 1% 10 MG/ML 10ML VIAL ONE (14:18)
[2021-11-04] MEDS: SODIUM BICARBONATE 650 MG TABLET PO SCH (17:01)
[2021-11-04] MEDS ORDERED: ALBUMIN HUMAN 12.5GM/50ML (25%) IV SCH (17:45)
[2021-11-04] MEDS ORDERED: ALBUMIN HUMAN 12.5GM/50ML (25%) IV ONE (19:59)
[2021-11-04] MEDS ORDERED: POTASSIUM CHLORIDE 20MEQ TABLET SR PO SCH (23:00)
[2021-11-05] VITALS (14 sets, daily range): BP systolic 120–150; BP diastolic 56–88
[2021-11-05] MEDS: IPRATROPIUM/ALBUTEROL 0.5-3(2.5)MG/3ML NEB HHN SCH ×3 (01:12→20:37)
[2021-11-05] MEDS: LACTULOSE 20G/30ML UDC PO SCH ×3 (05:35→21:40)
[2021-11-05 06:27] LABS: HEMATOCRIT. 25.5 % (36.0-48.0); HEMOGLOBIN. 8.6 g/dL (12.0-16.0); MEAN CORPUSCULAR HEMOGLOBIN 34.5 pg (28.0-32.0); PLATELET 68 x1000/uL (130-400); RED CELL DISTRIBUTION WIDTH 19.7 % (11.6-14.6)
[2021-11-05] MEDS: INSULIN LISPRO 100 UNITS/ML SUBCUT SCH ×4 (08:00→21:00)
[2021-11-05] MEDS: BLOOD SUGAR DIAGNOSTIC STRIP TEST SCH ×4 (08:26→21:00)
[2021-11-05] MEDS: ALBUMIN HUMAN 12.5GM/50ML (25%) IV SCH ×2 (10:14→17:30)
[2021-11-05] MEDS: SODIUM BICARBONATE 650 MG TABLET PO SCH ×3 (10:14→17:30)
[2021-11-05] MEDS: CIPROFLOXACIN 0.3% OPHTH SOLN 2.5ML LEFTEYE SCH ×2 (10:14→13:34)
[2021-11-05] MEDS: PANTOPRAZOLE SODIUM 40 MG/VIAL IV SCH ×2 (10:14→20:46)
[2021-11-05 10:54] LABS: PLATELET ESTIMATE DECREASED
[2021-11-06] VITALS (11 sets, daily range): BP systolic 135–153; BP diastolic 61–91
[2021-11-06] MEDS: IPRATROPIUM/ALBUTEROL 0.5-3(2.5)MG/3ML NEB HHN SCH ×4 (02:11→21:56)
[2021-11-06] MEDS: LACTULOSE 20G/30ML UDC PO SCH ×3 (05:38→20:45)
[2021-11-06] MEDS: BLOOD SUGAR DIAGNOSTIC STRIP TEST SCH ×4 (07:39→20:47)
[2021-11-06] MEDS: INSULIN LISPRO 100 UNITS/ML SUBCUT SCH ×4 (07:39→20:47)
[2021-11-06 08:19] LABS: HEMOGLOBIN. 8.7 g/dL (12.0-16.0); MEAN CORPUSCULAR HEMOGLOBIN 34.6 pg (28.0-32.0); MEAN CORPUSCULAR VOLUME 103.6 fL (81.0-99.0); MEAN PLATELET VOLUME 9.1 fl (7.4-10.4); PLATELET 51 x1000/uL (130-400); RED BLOOD CELL COUNT 2.51 mill/uL (4.2-5.4); RED CELL DISTRIBUTION WIDTH 19.5 % (11.6-14.6)
[2021-11-06] MEDS: SODIUM BICARBONATE 650 MG TABLET PO SCH ×2 (08:44→12:58)
[2021-11-06] MEDS: PANTOPRAZOLE SODIUM 40 MG/VIAL IV SCH ×2 (08:44→20:45)
[2021-11-06] MEDS: ALBUMIN HUMAN 12.5GM/50ML (25%) IV SCH (08:44)
[2021-11-06 09:08] LABS: NUCLEATED RED BLOOD CELLS 1 /100 WBC
[2021-11-06 09:11] LABS: PLATELET ESTIMATE DECREASED
[2021-11-06 14:02] LABS: BG BASE EXCESS -8.3 mmol/L (-2.0-2.0); BG CARBOXYHEMOGLOBIN 0.3 % (0.5-1.5); BG DEOXYHEMOGLOBIN 7.1 % (0.0-5.0); BG FRACTION INSPIRED OXYGEN 21; BG HCO3 ACT 15.6 mmol/L (22.0-26.0); BG METHEMOGLOBIN 0.3 % (0.0-1.5); BG OXYGEN SATURATION 92.9 % (92.0-98.5); BG OXYHEMOGLOBIN 92.3 % (94.0-97.0); BG PCO2 27.1 mmHg (35.0-45.0); BG PH 7.379 (7.350-7.450); BG PO2 70.3 mmHg (75.0-100.0); BG SAMPLE SITE RIGHT RADIAL; BG TOTAL HEMOGLOBIN 9.4 g/dL (12.0-18.0); BG VENT MODE ROOM AIR
[2021-11-07] VITALS: BP 128/62
[2021-11-07] MEDS: IPRATROPIUM/ALBUTEROL 0.5-3(2.5)MG/3ML NEB HHN SCH ×3 (02:35→21:28)
[2021-11-07 04:00] VITALS: BP 130/61
[2021-11-07] MEDS ORDERED: DILTIAZEM HCL 5MG/ML 5ML VIAL IV NR (06:00)
[2021-11-07] MEDS ORDERED: DILTIAZEM HCL 60MG TABLET PO PRN (06:00)
[2021-11-07] MEDS: INSULIN LISPRO 100 UNITS/ML SUBCUT SCH ×4 (06:15→21:00)
[2021-11-07] MEDS: BLOOD SUGAR DIAGNOSTIC STRIP TEST SCH ×4 (06:15→21:37)
[2021-11-07] MEDS: LACTULOSE 20G/30ML UDC PO SCH ×3 (06:22→21:46)
[2021-11-07 07:09] LABS: BASOPHILS % 0.3 % (0.0-2.0); EOSINOPHILS % 2.1 % (0.0-5.0); HEMATOCRIT. 23.6 % (36.0-48.0); HEMOGLOBIN. 7.9 g/dL (12.0-16.0); MEAN CORPUSCULAR HEMOGLOBIN 34.9 pg (28.0-32.0); MEAN CORPUSCULAR VOLUME 103.7 fL (81.0-99.0); MEAN PLATELET VOLUME 10.2 fl (7.4-10.4); MONOCYTES % 9.9 % (2.0-8.0); NEUTROPHILS % 76.7 % (40.0-76.0); RED BLOOD CELL COUNT 2.28 mill/uL (4.2-5.4); RED CELL DISTRIBUTION WIDTH 19.8 % (11.6-14.6)
[2021-11-07 07:49] LABS: PLATELET 46 x1000/uL (130-400)
[2021-11-07 08:00] VITALS: BP 130/57
[2021-11-07] MEDS: PANTOPRAZOLE SODIUM 40 MG/VIAL IV SCH ×2 (08:37→21:46)
[2021-11-07 09:43] LABS: PLATELET ESTIMATE MARKEDLY DECREASED
[2021-11-07 12:00] VITALS: BP 145/74
[2021-11-07 13:13] LABS: INR 1.6; PROTHROMBIN TIME 16.1 sec (9.6-11.0)
[2021-11-07 14:26] LABS: HEPATITIS B SURFACE ANTIGEN NEGATIVE
[2021-11-07] MEDS ORDERED: LIDOCAINE HCL 1% 20ML VIAL (Pyxis) INJ ONE (15:39)
[2021-11-07] MEDS ORDERED: HEPARIN 1000 UNITS/ML 10ML ONE (15:39)
[2021-11-07 16:00] VITALS: BP 154/87
[2021-11-07] MEDS: SODIUM BICARBONATE 650 MG TABLET PO SCH (17:28)
[2021-11-07] MEDS: HYDROCODONE/ACETAMINOPHEN 5/325MG TABLET PO PRN (17:29)
[2021-11-07 20:00] VITALS: BP 150/81
[2021-11-08] VITALS (12 sets, daily range): BP systolic 128–150; BP diastolic 61–98
[2021-11-08] MEDS: IPRATROPIUM/ALBUTEROL 0.5-3(2.5)MG/3ML NEB HHN SCH ×4 (01:42→18:00)
[2021-11-08 03:04] LABS: BASOPHILS % 0.4 % (0.0-2.0); EOSINOPHILS % 4.7 % (0.0-5.0); HEMATOCRIT. 34.4 % (36.0-48.0); HEMOGLOBIN. 11.6 g/dL (12.0-16.0); MEAN CORPUSCULAR HEMOGLOBIN 32.5 pg (28.0-32.0); MEAN CORPUSCULAR VOLUME 96.5 fL (81.0-99.0); MEAN PLATELET VOLUME 9.4 fl (7.4-10.4); MONOCYTES % 7.5 % (2.0-8.0); NEUTROPHILS % 75.4 % (40.0-76.0); PLATELET 57 x1000/uL (130-400); RED BLOOD CELL COUNT 3.57 mill/uL (4.2-5.4); RED CELL DISTRIBUTION WIDTH 21.1 % (11.6-14.6)
[2021-11-08] MEDS: BLOOD SUGAR DIAGNOSTIC STRIP TEST SCH ×4 (05:24→20:33)
[2021-11-08] MEDS: LACTULOSE 20G/30ML UDC PO SCH ×3 (05:32→20:33)
[2021-11-08] MEDS: INSULIN LISPRO 100 UNITS/ML SUBCUT SCH ×4 (05:35→20:33)
[2021-11-08] MEDS: PANTOPRAZOLE SODIUM 40 MG/VIAL IV SCH ×2 (08:28→20:33)
[2021-11-08] MEDS: SODIUM BICARBONATE 650 MG TABLET PO SCH ×3 (08:28→16:50)
[2021-11-08 10:01] LABS: HEMATOCRIT. 28.9 % (36.0-48.0); HEMOGLOBIN. 9.9 g/dL (12.0-16.0); MEAN CORPUSCULAR HEMOGLOBIN 33.2 pg (28.0-32.0); MEAN PLATELET VOLUME 8.5 fl (7.4-10.4); PLATELET 60 x1000/uL (130-400); RED BLOOD CELL COUNT 2.98 mill/uL (4.2-5.4); RED CELL DISTRIBUTION WIDTH 21.8 % (11.6-14.6)
[2021-11-08 10:36] LABS: PLATELET ESTIMATE DECREASED
[2021-11-08] MEDS ORDERED: POTASSIUM CHLORIDE 20MEQ TABLET SR PO NR (10:45)
[2021-11-08] MEDS ORDERED: NALOXONE HCL 0.4MG/ML VIAL IV PRN (17:15)
[2021-11-09] VITALS (13 sets, daily range): BP systolic 107–151; BP diastolic 60–82
[2021-11-09] MEDS: BLOOD SUGAR DIAGNOSTIC STRIP TEST SCH ×4 (05:03→21:00)
[2021-11-09] MEDS: INSULIN LISPRO 100 UNITS/ML SUBCUT SCH ×4 (05:03→21:00)
[2021-11-09] MEDS: LACTULOSE 20G/30ML UDC PO SCH ×3 (05:03→22:35)
[2021-11-09] MEDS: IPRATROPIUM/ALBUTEROL 0.5-3(2.5)MG/3ML NEB HHN SCH ×3 (07:44→20:46)
[2021-11-09 08:45] LABS: HEMATOCRIT. 32.4 % (36.0-48.0); MEAN CORPUSCULAR VOLUME 97.6 fL (81.0-99.0); RED BLOOD CELL COUNT 3.32 mill/uL (4.2-5.4); RED CELL DISTRIBUTION WIDTH 22.1 % (11.6-14.6)
[2021-11-09 08:55] LABS: PLATELET 47 x1000/uL (130-400)
[2021-11-09] MEDS: SODIUM BICARBONATE 650 MG TABLET PO SCH ×3 (09:26→16:52)
[2021-11-09] MEDS: PANTOPRAZOLE SODIUM 40 MG/VIAL IV SCH ×2 (09:26→22:35)
[2021-11-09 10:04] LABS: PLATELET ESTIMATE MARKEDLY DECREASED
[2021-11-09] MEDS ORDERED: POTASSIUM CHLORIDE 20MEQ TABLET SR PO SCH (10:30)
[2021-11-09 22:06] LABS: INR 1.5; PROTHROMBIN TIME 15.8 sec (9.6-11.0)
[2021-11-09] MEDS ORDERED: PANTOPRAZOLE SODIUM 40 MG/VIAL IV ONE (22:29)
[2021-11-10] VITALS (16 sets, daily range): BP systolic 112–159; BP diastolic 64–84
[2021-11-10] MEDS: DEXTROSE 5% WATER 1,000 ML IV SCH (00:22)
[2021-11-10 00:27] LABS: BASOPHILS % 0.3 % (0.0-2.0); EOSINOPHILS % 5.2 % (0.0-5.0); HEMATOCRIT. 28.3 % (36.0-48.0); HEMOGLOBIN. 9.7 g/dL (12.0-16.0); LYMPHOCYTES % 12.5 % (20.0-50.0); MEAN CORPUSCULAR HEMOGLOBIN 33.5 pg (28.0-32.0); MEAN CORPUSCULAR VOLUME 97.9 fL (81.0-99.0); MEAN PLATELET VOLUME 8.7 fl (7.4-10.4); MONOCYTES % 12.5 % (2.0-8.0); NEUTROPHILS % 69.5 % (40.0-76.0); PLATELET 61 x1000/uL (130-400); RED BLOOD CELL COUNT 2.89 mill/uL (4.2-5.4); RED CELL DISTRIBUTION WIDTH 22.3 % (11.6-14.6)
[2021-11-10 00:51] LABS: INR 1.5; PROTHROMBIN TIME 15.7 sec (9.6-11.0)
[2021-11-10] MEDS: IPRATROPIUM/ALBUTEROL 0.5-3(2.5)MG/3ML NEB HHN SCH ×3 (01:04→22:01)
[2021-11-10] MEDS: LACTULOSE 20G/30ML UDC PO SCH ×3 (06:38→20:56)
[2021-11-10] MEDS: BLOOD SUGAR DIAGNOSTIC STRIP TEST SCH ×4 (06:41→20:55)
[2021-11-10] MEDS: INSULIN LISPRO 100 UNITS/ML SUBCUT SCH ×4 (06:41→20:55)
[2021-11-10 06:58] LABS: HEMATOCRIT. 26.6 % (36.0-48.0); HEMOGLOBIN. 9.2 g/dL (12.0-16.0); MEAN CORPUSCULAR HEMOGLOBIN 33.5 pg (28.0-32.0); MEAN CORPUSCULAR VOLUME 96.7 fL (81.0-99.0); MEAN PLATELET VOLUME 8.9 fl (7.4-10.4); PLATELET 55 x1000/uL (130-400); RED BLOOD CELL COUNT 2.75 mill/uL (4.2-5.4)
[2021-11-10] MEDS ORDERED: CEFAZOLIN 1000MG PREMIX 50 ML IV ONE (07:37)
[2021-11-10] MEDS ORDERED: FENTANYL CITRATE/PF 50MCG/ML 2ML VIAL ONE (07:37)
[2021-11-10] MEDS ORDERED: LIDOCAINE HCL 1% 20ML VIAL (Pyxis) INJ ONE (07:46)
[2021-11-10] MEDS: CEFAZOLIN 1000MG PREMIX 50 ML IV NR ×2 (08:10→11:14)
[2021-11-10] MEDS ORDERED: FENTANYL CITRATE/PF 50MCG/ML 2ML VIAL IV ONE (08:45)
[2021-11-10 09:38] LABS: PLATELET ESTIMATE DECREASED
[2021-11-10] MEDS: PANTOPRAZOLE SODIUM 40 MG/VIAL IV SCH ×2 (09:47→20:57)
[2021-11-10] MEDS: HYDROCODONE/ACETAMINOPHEN 5/325MG TABLET PO PRN (09:48)
[2021-11-10] MEDS ORDERED: BISACODYL 10MG SUPP PR NR (11:45)
[2021-11-11] VITALS: BP 119/60
[2021-11-11] MEDS: DEXTROSE 5% WATER 1,000 ML IV SCH (00:25)
[2021-11-11] MEDS: IPRATROPIUM/ALBUTEROL 0.5-3(2.5)MG/3ML NEB HHN SCH ×4 (02:29→21:21)
[2021-11-11 04:00] VITALS: BP 115/54
[2021-11-11] MEDS: LACTULOSE 20G/30ML UDC PO SCH ×3 (06:16→20:47)
[2021-11-11 08:00] VITALS: BP 122/8
[2021-11-11 09:33] LABS: BASOPHILS % 0.4 % (0.0-2.0); EOSINOPHILS % 5.5 % (0.0-5.0); HEMOGLOBIN. 9.5 g/dL (12.0-16.0); LYMPHOCYTES % 14.5 % (20.0-50.0); MEAN CORPUSCULAR HEMOGLOBIN 33.1 pg (28.0-32.0); MEAN PLATELET VOLUME 9.1 fl (7.4-10.4); MONOCYTES % 13.8 % (2.0-8.0); NEUTROPHILS % 65.8 % (40.0-76.0); RED BLOOD CELL COUNT 2.86 mill/uL (4.2-5.4); RED CELL DISTRIBUTION WIDTH 22.1 % (11.6-14.6)
[2021-11-11 09:40] LABS: PLATELET 46 x1000/uL (130-400)
[2021-11-11] MEDS: PANTOPRAZOLE SODIUM 40 MG/VIAL IV SCH ×2 (09:50→20:46)
[2021-11-11 11:09] LABS: PLATELET ESTIMATE DECREASED
[2021-11-11 12:00] VITALS: BP 110/62
[2021-11-11 16:00] VITALS: BP 132/61
[2021-11-11 20:00] VITALS: BP 102/60
[2021-11-12] VITALS: BP 133/6
[2021-11-12] MEDS: IPRATROPIUM/ALBUTEROL 0.5-3(2.5)MG/3ML NEB HHN SCH ×4 (01:27→21:52)
[2021-11-12 04:00] VITALS: BP 126/73
[2021-11-12 08:00] VITALS: BP 125/59
[2021-11-12] MEDS: PANTOPRAZOLE SODIUM 40 MG/VIAL IV SCH ×2 (08:42→21:21)
[2021-11-12 12:00] VITALS: BP 130/50
[2021-11-12] MEDS: BLOOD SUGAR DIAGNOSTIC STRIP TEST SCH ×2 (12:31→21:19)
[2021-11-12] MEDS: INSULIN LISPRO 100 UNITS/ML SUBCUT SCH ×3 (12:32→21:00)
[2021-11-12 13:34] LABS: HEMATOCRIT. 30.9 % (36.0-48.0); HEMOGLOBIN. 10.5 g/dL (12.0-16.0); MEAN CORPUSCULAR HEMOGLOBIN 33.1 pg (28.0-32.0); MEAN CORPUSCULAR VOLUME 97.5 fL (81.0-99.0); MEAN PLATELET VOLUME 8.8 fl (7.4-10.4); RED BLOOD CELL COUNT 3.17 mill/uL (4.2-5.4); RED CELL DISTRIBUTION WIDTH 22.1 % (11.6-14.6)
[2021-11-12 13:47] LABS: PLATELET 44 x1000/uL (130-400)
[2021-11-12] MEDS: LACTULOSE 20G/30ML UDC PO SCH ×2 (14:00→21:27)
[2021-11-12 14:05] LABS: HEPATITIS B SURFACE ANTIGEN NEGATIVE
[2021-11-12 14:08] LABS: PLATELET ESTIMATE MARKEDLY DECREASED
[2021-11-12] MEDS ORDERED: POTASSIUM CHLORIDE 20MEQ TABLET SR PO NR (16:30)
[2021-11-12 20:00] VITALS: BP 109/55
[2021-11-12] MEDS: DEXTROSE 5% WATER 1,000 ML IV SCH ×2 (23:44)
[2021-11-13] VITALS: BP 100/52
[2021-11-13] MEDS: IPRATROPIUM/ALBUTEROL 0.5-3(2.5)MG/3ML NEB HHN SCH ×4 (01:09→22:21)
[2021-11-13 04:00] VITALS: BP 109/57
[2021-11-13] MEDS: LACTULOSE 20G/30ML UDC PO SCH ×3 (05:14→20:27)
[2021-11-13] MEDS: BLOOD SUGAR DIAGNOSTIC STRIP TEST SCH ×5 (05:14→20:27)
[2021-11-13] MEDS: INSULIN LISPRO 100 UNITS/ML SUBCUT SCH ×4 (05:23→20:57)
[2021-11-13 06:29] LABS: HEMATOCRIT. 26.1 % (36.0-48.0); MEAN CORPUSCULAR HEMOGLOBIN 33.6 pg (28.0-32.0); MEAN CORPUSCULAR VOLUME 97.4 fL (81.0-99.0); MEAN PLATELET VOLUME 9.6 fl (7.4-10.4); RED BLOOD CELL COUNT 2.68 mill/uL (4.2-5.4); RED CELL DISTRIBUTION WIDTH 21.9 % (11.6-14.6)
[2021-11-13 08:00] VITALS: BP 121/62
[2021-11-13] MEDS: PANTOPRAZOLE SODIUM 40 MG/VIAL IV SCH ×2 (09:05→20:27)
[2021-11-13] MEDS ORDERED: POTASSIUM CHLORIDE 20MEQ TABLET SR PO NR ×2 (10:15→15:00)
[2021-11-13 12:00] VITALS: BP 114/60
[2021-11-13 13:29] LABS: PLATELET ESTIMATE MARKEDLY DECREASED
[2021-11-13 13:30] LABS: PLATELET 35 x1000/uL (130-400)
[2021-11-13] MEDS ORDERED: HYDROCODONE/ACETAMINOPHEN 5/325MG TABLET PO PRN (14:00)
[2021-11-13] MEDS ORDERED: NALOXONE HCL 0.4MG/ML VIAL IV PRN (14:15)
[2021-11-13 16:00] VITALS: BP 114/55
[2021-11-13 20:00] VITALS: BP 110/50
[2021-11-14] VITALS: BP 102/51
[2021-11-14] MEDS: IPRATROPIUM/ALBUTEROL 0.5-3(2.5)MG/3ML NEB HHN SCH ×3 (01:32→15:51)
[2021-11-14 04:00] VITALS: BP 106/51
[2021-11-14] MEDS: BLOOD SUGAR DIAGNOSTIC STRIP TEST SCH ×2 (05:30→12:45)
[2021-11-14] MEDS: INSULIN LISPRO 100 UNITS/ML SUBCUT SCH ×2 (05:30→12:36)
[2021-11-14] MEDS: LACTULOSE 20G/30ML UDC PO SCH ×2 (05:31→15:11)
[2021-11-14 08:00] VITALS: BP 102/60
[2021-11-14] MEDS: PANTOPRAZOLE SODIUM 40 MG/VIAL IV SCH (08:31)
[2021-11-14 10:04] LABS: BASOPHILS % 0.4 % (0.0-2.0); HEMATOCRIT. 26.9 % (36.0-48.0); HEMOGLOBIN. 9.1 g/dL (12.0-16.0); LYMPHOCYTES % 13.6 % (20.0-50.0); MEAN CORPUSCULAR HEMOGLOBIN 33.4 pg (28.0-32.0); MEAN CORPUSCULAR VOLUME 98.8 fL (81.0-99.0); MEAN PLATELET VOLUME 9.6 fl (7.4-10.4); MONOCYTES % 15.5 % (2.0-8.0); NEUTROPHILS % 63.5 % (40.0-76.0); RED BLOOD CELL COUNT 2.73 mill/uL (4.2-5.4)
[2021-11-14 10:17] LABS: PLATELET 43 x1000/uL (130-400)
[2021-11-14 12:00] VITALS: BP 113/55
[2021-11-14 14:45] VITALS: BP 113/55
[2021-11-14 16:00] VITALS: BP 124/68
== END 2021-11-14 16:00 | disposition home or self-care (01) | DRG 871 ==
LOC: ER 15:42 → 5EST 19:23 → EDBEDREQ 19:28 → EDBEDREQTM 19:28 → EDBEDREQSVC 19:51 → EDBEDREQTM 19:51 → ENRESERV 20:36 → 8WST 11-06 15:49
PROVIDERS: ADMIT Internal Medicine; ATTEND Internal Medicine
PROC: 5A09357 Assistance with Respiratory Ventilation, Less than 24 Consecutive Hours, Continuous Positive Airway Pressure (ICD-10-PCS; 2021-10-28)
PROC: 5A09357 Assistance with Respiratory Ventilation, Less than 24 Consecutive Hours, Continuous Positive Airway Pressure (ICD-10-PCS; 2021-10-29)
PROC: 0W9G3ZZ Drainage of Peritoneal Cavity, Percutaneous Approach (ICD-10-PCS; 2021-10-30)
PROC: 30233N1 Transfusion of Nonautologous Red Blood Cells into Peripheral Vein, Percutaneous Approach (ICD-10-PCS; 2021-10-31)
PROC: 0DJ08ZZ Inspection of Upper Intestinal Tract, Via Natural or Artificial Opening Endoscopic (ICD-10-PCS; principal; 2021-11-03)
PROC: 02HV33Z Insertion of Infusion Device into Superior Vena Cava, Percutaneous Approach (ICD-10-PCS; 2021-11-04)
PROC: B518ZZA Fluoroscopy of Superior Vena Cava, Guidance (ICD-10-PCS; 2021-11-04)
PROC: B548ZZA Ultrasonography of Superior Vena Cava, Guidance (ICD-10-PCS; 2021-11-04)
PROC: 30233R1 Transfusion of Nonautologous Platelets into Peripheral Vein, Percutaneous Approach (ICD-10-PCS; 2021-11-04)
PROC: 02HV33Z Insertion of Infusion Device into Superior Vena Cava, Percutaneous Approach (ICD-10-PCS; 2021-11-07)
PROC: B548ZZA Ultrasonography of Superior Vena Cava, Guidance (ICD-10-PCS; 2021-11-07)
PROC: 5A1D70Z Performance of Urinary Filtration, Intermittent, Less than 6 Hours Per Day (ICD-10-PCS; 2021-11-07)
PROC: 02PYX3Z Removal of Infusion Device from Great Vessel, External Approach (ICD-10-PCS; 2021-11-10)
PROC: 02HV33Z Insertion of Infusion Device into Superior Vena Cava, Percutaneous Approach (ICD-10-PCS; 2021-11-10)
PROC: 0JH63XZ Insertion of Tunneled Vascular Access Device into Chest Subcutaneous Tissue and Fascia, Percutaneous Approach (ICD-10-PCS; 2021-11-10)
PROC: B518ZZA Fluoroscopy of Superior Vena Cava, Guidance (ICD-10-PCS; 2021-11-10)
PROC: 5A1D70Z Performance of Urinary Filtration, Intermittent, Less than 6 Hours Per Day (ICD-10-PCS; 2021-11-10)
PROC: 5A1D70Z Performance of Urinary Filtration, Intermittent, Less than 6 Hours Per Day (ICD-10-PCS; 2021-11-12)
PROC: 5A1D70Z Performance of Urinary Filtration, Intermittent, Less than 6 Hours Per Day (ICD-10-PCS; 2021-11-14)
DX: A41.9 Sepsis, unspecified organism (principal); J18.9 Pneumonia, unspecified organism; N18.6 End stage renal disease; I50.33 Acute on chronic diastolic (congestive) heart failure; E87.2 Acidosis; D61.818 Other pancytopenia; D68.9 Coagulation defect, unspecified; N17.9 Acute kidney failure, unspecified; N39.0 Urinary tract infection, site not specified; K76.6 Portal hypertension; R18.8 Other ascites; I85.10 Secondary esophageal varices without bleeding; E87.0 Hyperosmolality and hypernatremia; I13.2 Hypertensive heart and chronic kidney disease with heart failure and with stage 5 chronic kidney disease, or end stage renal disease; R27.0 Ataxia, unspecified; K72.90 Hepatic failure, unspecified without coma; E11.22 Type 2 diabetes mellitus with diabetic chronic kidney disease; E78.00 Pure hypercholesterolemia, unspecified; K74.60 Unspecified cirrhosis of liver; E78.5 Hyperlipidemia, unspecified; K40.90 Unilateral inguinal hernia, without obstruction or gangrene, not specified as recurrent; Z20.822 Contact with and (suspected) exposure to COVID-19; K31.89 Other diseases of stomach and duodenum; H10.89 Other conjunctivitis; K52.9 Noninfective gastroenteritis and colitis, unspecified; I48.91 Unspecified atrial fibrillation; D53.9 Nutritional anemia, unspecified; E87.6 Hypokalemia; K44.9 Diaphragmatic hernia without obstruction or gangrene; Z99.2 Dependence on renal dialysis; Z79.899 Other long term (current) drug therapy
CPT/HCPCS: 36415; 36430; 36556; 36558; 36573; 36589; 36600; 49083; 71045; 74018; 74176; 76705; 76770; 77001; 78582; 80048; 80053; 80202; 81003; 82040; 82140; 82270; 82375; 82607; 82728; 82746; 82805; 82962; 83036; 83540; 83550; 83605; 83615; 83735; 83880; 84132; 84478; 84484; 85014; 85018; 85025; 85044; 85049; 85384; 86705; 86706; 86709; 86803; 86850; 86900; 86920; 87340; 87426; 93005; 93306; 93970; 94640; 94660; 97116; 97162; 99152; 99153; 99291; A9558; C1725; C1750; C1752; C1769; C1893; C9113; J0690; J1644; J1815; J1940; J2250; J2354; J2543; J2704; J3010; J3370; J3490; J7050; J7060; J7070; P9016; P9034; P9047; U0003; U0005; A4315; G0500; P9035

== ENCOUNTER 2021-12-08 21:02 | Emergency (ER) | payer BC, MEDICARE ==
[~2021-12-08] VITALS: Ht 139.7 cm; Wt 41.0 kg
[2021-12-08 23:40] LABS: HEMATOCRIT. 28.3 % (36.0-48.0); HEMOGLOBIN. 9.8 g/dL (12.0-16.0); MEAN CORPUSCULAR HEMOGLOBIN 34.7 pg (28.0-32.0); MEAN PLATELET VOLUME 9.9 fl (7.4-10.4); PLATELET 71 x1000/uL (130-400); RED BLOOD CELL COUNT 2.83 mill/uL (4.2-5.4); RED CELL DISTRIBUTION WIDTH 21.2 % (11.6-14.6)
[2021-12-08 23:41] LABS: INR 1.2
[2021-12-08 23:43] LABS: CHLORIDE 101 mEq/L (98-107)
[2021-12-09 01:23] LABS: CLARITY URINE CLEAR (CLEAR); COLOR URINE DARK YELLOW (YELLOW); KETONES URINE 1+ (NEGATIVE); LEUKOCYTE ESTERASE URINE 1+ (NEGATIVE); NITRITE URINE NEGATIVE (NEGATIVE); OCCULT BLOOD URINE 3+ (NEGATIVE); PH URINE 5.5 (4.5-8.0); PROTEIN URINE 2+ (NEGATIVE); SPECIFIC GRAVITY URINE 1.018 (1.005-1.030)
[2021-12-09] MEDS ORDERED: DOCU-138 MT ×2 (01:44→12:30)
[2021-12-09] MEDS ORDERED: CEPHALEXIN 250MG CAPSULE PO ONE (01:45)
[2021-12-09 02:00] VITALS: BP 134/69
[2021-12-09 07:44] LABS: PLATELET ESTIMATE DECREASED
== END 2021-12-09 02:20 | disposition home or self-care (01) ==
LOC: ER 21:02
DX: K64.9 Unspecified hemorrhoids (principal); N39.0 Urinary tract infection, site not specified; E11.9 Type 2 diabetes mellitus without complications; E78.00 Pure hypercholesterolemia, unspecified; I10 Essential (primary) hypertension; Z79.899 Other long term (current) drug therapy
CPT/HCPCS: 36415; 80053; 81003; 85025; 93005; 99284

== ENCOUNTER 2022-01-02 10:23 | Inpatient (IN) | payer BC, MEDICARE ==
[~2022-01-02] VITALS: Ht 139.7 cm; Wt 45.6 kg
[2022-01-02] VITALS (44 sets, daily range): BP systolic 90–158; BP diastolic 38–74
[~2022-01-02 10:23] MED LIST changes: +DOCU-138 MT
[2022-01-02] MEDS ORDERED: SODIUM CHLORIDE 0.9% 1000ML BAG (SEPSIS BOLUS) IV ONE (10:45)
[2022-01-02] MEDS ORDERED: PANTOPRAZOLE SODIUM 40 MG/VIAL IV ONE (10:45)
[2022-01-02 10:59] LABS: MEAN CORPUSCULAR HEMOGLOBIN 35.1 pg (28.0-32.0); PLATELET 84 x1000/uL (130-400); RED CELL DISTRIBUTION WIDTH 19.6 % (11.6-14.6)
[2022-01-02 11:05] LABS: HEMOGLOBIN. 5.3 g/dL (12.0-16.0)
[2022-01-02 11:08] LABS: CHLORIDE 101 mEq/L (98-107)
[2022-01-02 11:09] LABS: BG BASE EXCESS 5.4 mmol/L (-2.0-2.0); BG CARBOXYHEMOGLOBIN 0.3 % (0.5-1.5); BG DEOXYHEMOGLOBIN 3.7 % (0.0-5.0); BG FRACTION INSPIRED OXYGEN 21; BG HCO3 ACT 28.4 mmol/L (22.0-26.0); BG METHEMOGLOBIN 0.1 % (0.0-1.5); BG OXYGEN SATURATION 96.3 % (92.0-98.5); BG OXYHEMOGLOBIN 95.9 % (94.0-97.0); BG PH 7.552 (7.350-7.450); BG PO2 87.9 mmHg (75.0-100.0); BG SAMPLE SITE RIGHT RADIAL; BG TOTAL HEMOGLOBIN 4.6 g/dL (12.0-18.0); BG VENT MODE ROOM AIR
[2022-01-02] MEDS ORDERED: CEFTRIAXONE 1 G PREMIX 50 ML IV ONE (11:30)
[2022-01-02] MEDS ORDERED: MIDODRINE HCL 5MG TABLET PO ONE (11:30)
[2022-01-02 11:43] LABS: TOTAL IRON BINDING CAPACITY 242 ug/dL (250-450)
[2022-01-02 12:10] LABS: NUCLEATED RED BLOOD CELLS 1 /100 WBC
[2022-01-02 12:11] LABS: PLATELET ESTIMATE DECREASED
[2022-01-02] MEDS ORDERED: NOREPINEPHRINE 8MG/250ML PMX 250 ML IV PRN (12:15)
[2022-01-02] MEDS ORDERED: LIDOCAINE HCL 1% 10 MG/ML 10ML VIAL ONE (12:48)
[2022-01-02] MEDS ORDERED: OCTREOTIDE 1,000 MCG in SODIUM CHLORIDE 0.9% 100 ML IV SCH (13:30)
[2022-01-02] MEDS: RIFAXIMIN 550 MG TABLET PO SCH ×2 (14:12→22:21)
[2022-01-02] MEDS: OCTREOTIDE 1,000 MCG in SODIUM CHLORIDE 0.9% 100 ML IV SCH (14:12)
[2022-01-02] MEDS: PHENYLEPH/PRAMOXIN/GLYCR/PET RECTAL CREAM 26GM PR SCH ×2 (14:13→22:22)
[2022-01-02 15:27] LABS: INR 1.5; PROTHROMBIN TIME 15.9 sec (9.6-11.0)
[2022-01-02] MEDS ORDERED: ACETAMINOPHEN 325MG TABLET PO PRN (16:00)
[2022-01-02] MEDS ORDERED: PIPERACILLIN/TAZ 3.375G PREMIX 50 ML IV SCH (16:00)
[2022-01-02 16:06] LABS: HEMATOCRIT 25.6 % (36.0-48.0); HEMOGLOBIN 8.6 g/dL (12.0-16.0)
[2022-01-02] MEDS: PANTOPRAZOLE SODIUM 40 MG/VIAL IV SCH (16:37)
[2022-01-02] MEDS ORDERED: VANCOMYCIN 1G PREMIX 200 ML IV NR (18:00)
[2022-01-02] MEDS ORDERED: MIDO10TA MT (18:29)
[2022-01-02] MEDS ORDERED: SPIR25TA6 MT (18:29)
[2022-01-02] MEDS ORDERED: PROP20TA7 MT (18:29)
[2022-01-02] MEDS ORDERED: GLIP5TAB12 MT (18:29)
[2022-01-02] MEDS: PIPERACILLIN/TAZOBACTAM 3.375G in DEXT 5% WATER 50ML IV SCH (18:59)
[2022-01-02 19:08] LABS: HEMATOCRIT 24.8 % (36.0-48.0); HEMOGLOBIN 8.5 g/dL (12.0-16.0)
[2022-01-02] MEDS ORDERED: DEXTROSE 50% WATER 50ML SYRINGE IV PRN (19:45)
[2022-01-02] MEDS: INSULIN LISPRO 100 UNITS/ML SUBCUT SCH (21:00)
[2022-01-02] MEDS: BLOOD SUGAR DIAGNOSTIC STRIP TEST SCH (21:00)
[2022-01-03] VITALS (92 sets, daily range): BP systolic 96–130; BP diastolic 39–69
[2022-01-03 01:32] LABS: HEMATOCRIT 24.8 % (36.0-48.0); HEMOGLOBIN 8.5 g/dL (12.0-16.0)
[2022-01-03 05:30] LABS: HEMATOCRIT. 24.7 % (36.0-48.0); HEMOGLOBIN. 8.4 g/dL (12.0-16.0); MEAN CORPUSCULAR HEMOGLOBIN 31.9 pg (28.0-32.0); MEAN CORPUSCULAR VOLUME 93.3 fL (81.0-99.0); MEAN PLATELET VOLUME 9.7 fl (7.4-10.4); RED BLOOD CELL COUNT 2.65 mill/uL (4.2-5.4); RED CELL DISTRIBUTION WIDTH 19.5 % (11.6-14.6)
[2022-01-03] MEDS: LACTULOSE 20G/30ML UDC PO SCH ×2 (05:31→14:00)
[2022-01-03] MEDS: PHENYLEPH/PRAMOXIN/GLYCR/PET RECTAL CREAM 26GM PR SCH ×3 (05:31→21:20)
[2022-01-03 05:49] LABS: INR 1.4; PROTHROMBIN TIME 14.4 sec (9.6-11.0)
[2022-01-03 06:23] LABS: VITAMIN B12 SERUM 1514 pg/mL (211-911)
[2022-01-03 06:27] LABS: FOLIC ACID (FOLATE) SERUM > 20.00 ng/mL (>5.38)
[2022-01-03 06:50] LABS: PLATELET 45 x1000/uL (130-400)
[2022-01-03] MEDS: BLOOD SUGAR DIAGNOSTIC STRIP TEST SCH ×4 (07:35→21:19)
[2022-01-03] MEDS: INSULIN LISPRO 100 UNITS/ML SUBCUT SCH ×4 (07:35→21:18)
[2022-01-03 07:37] LABS: BG BASE EXCESS 0.9 mmol/L (-2.0-2.0); BG CARBOXYHEMOGLOBIN 0.1 % (0.5-1.5); BG DEOXYHEMOGLOBIN 4.8 % (0.0-5.0); BG FRACTION INSPIRED OXYGEN 21; BG HCO3 ACT 24.6 mmol/L (22.0-26.0); BG METHEMOGLOBIN 0.2 % (0.0-1.5); BG OXYGEN SATURATION 95.2 % (92.0-98.5); BG OXYHEMOGLOBIN 94.9 % (94.0-97.0); BG PCO2 35.5 mmHg (35.0-45.0); BG PH 7.458 (7.350-7.450); BG PO2 75.3 mmHg (75.0-100.0); BG SAMPLE SITE LEFT BRACHIAL; BG TOTAL HEMOGLOBIN 9.8 g/dL (12.0-18.0); BG VENT MODE ROOM AIR
[2022-01-03] MEDS: RIFAXIMIN 550 MG TABLET PO SCH ×2 (08:17→21:18)
[2022-01-03] MEDS: PANTOPRAZOLE SODIUM 40 MG/VIAL IV SCH ×2 (08:17→21:19)
[2022-01-03] MEDS: OCTREOTIDE 1,000 MCG in SODIUM CHLORIDE 0.9% 100 ML IV SCH (08:17)
[2022-01-03] MEDS: PIPERACILLIN/TAZOBACTAM 3.375G in DEXT 5% WATER 50ML IV SCH ×2 (08:17→21:18)
[2022-01-03 10:01] LABS: NUCLEATED RED BLOOD CELLS 2 /100 WBC; PLATELET ESTIMATE DECREASED
[2022-01-03 13:13] LABS: HEMATOCRIT 25.9 % (36.0-48.0); HEMOGLOBIN 8.7 g/dL (12.0-16.0)
[2022-01-03] MEDS ORDERED: POTASSIUM CHLORIDE 20MEQ/PACKET PO NR (14:30)
[2022-01-03] MEDS ORDERED: HYDROCODONE/ACETAMINOPHEN 5/325MG TABLET PO PRN (14:45)
[2022-01-03] MEDS ORDERED: NALOXONE HCL 0.4MG/ML VIAL IV PRN (16:00)
[2022-01-03] MEDS ORDERED: MAGNESIUM 1 G PREMIX 100 ML IV NR (17:15)
[2022-01-03 18:10] LABS: BASOPHILS % 0.5 % (0.0-2.0); EOSINOPHILS % 4.4 % (0.0-5.0); HEMATOCRIT. 24.5 % (36.0-48.0); HEMOGLOBIN. 8.4 g/dL (12.0-16.0); LYMPHOCYTES % 17.7 % (20.0-50.0); MEAN CORPUSCULAR HEMOGLOBIN 32.4 pg (28.0-32.0); MEAN CORPUSCULAR VOLUME 94.8 fL (81.0-99.0); MEAN PLATELET VOLUME 8.9 fl (7.4-10.4); MONOCYTES % 11.3 % (2.0-8.0); NEUTROPHILS % 66.1 % (40.0-76.0); PLATELET 63 x1000/uL (130-400); RED BLOOD CELL COUNT 2.59 mill/uL (4.2-5.4); RED CELL DISTRIBUTION WIDTH 19.9 % (11.6-14.6)
[2022-01-04] VITALS (65 sets, daily range): BP systolic 92–161; BP diastolic 43–92
[2022-01-04 00:59] LABS: HEMATOCRIT 24.8 % (36.0-48.0); HEMOGLOBIN 8.4 g/dL (12.0-16.0)
[2022-01-04] MEDS: OCTREOTIDE 1,000 MCG in SODIUM CHLORIDE 0.9% 100 ML IV SCH (04:42)
[2022-01-04] MEDS: PHENYLEPH/PRAMOXIN/GLYCR/PET RECTAL CREAM 26GM PR SCH ×3 (05:35→21:55)
[2022-01-04 05:50] LABS: BASOPHILS % 0.8 % (0.0-2.0); EOSINOPHILS % 7.2 % (0.0-5.0); HEMATOCRIT. 25.2 % (36.0-48.0); HEMOGLOBIN. 8.6 g/dL (12.0-16.0); LYMPHOCYTES % 23.7 % (20.0-50.0); MEAN CORPUSCULAR HEMOGLOBIN 32.4 pg (28.0-32.0); MEAN CORPUSCULAR VOLUME 94.7 fL (81.0-99.0); MEAN PLATELET VOLUME 9.8 fl (7.4-10.4); MONOCYTES % 13.9 % (2.0-8.0); NEUTROPHILS % 54.4 % (40.0-76.0); PLATELET 67 x1000/uL (130-400); RED BLOOD CELL COUNT 2.66 mill/uL (4.2-5.4); RED CELL DISTRIBUTION WIDTH 20.2 % (11.6-14.6)
[2022-01-04 06:14] LABS: INR 1.4; PROTHROMBIN TIME 14.5 sec (9.6-11.0)
[2022-01-04] MEDS: BLOOD SUGAR DIAGNOSTIC STRIP TEST SCH ×4 (07:57→21:39)
[2022-01-04] MEDS: INSULIN LISPRO 100 UNITS/ML SUBCUT SCH ×4 (07:57→21:41)
[2022-01-04] MEDS: PANTOPRAZOLE SODIUM 40 MG/VIAL IV SCH ×2 (08:19→21:37)
[2022-01-04] MEDS: RIFAXIMIN 550 MG TABLET PO SCH ×2 (08:19→21:39)
[2022-01-04] MEDS: PIPERACILLIN/TAZOBACTAM 3.375G in DEXT 5% WATER 50ML IV SCH ×2 (08:20→21:37)
[2022-01-04] MEDS ORDERED: PROPOFOL 200MG/20ML VIAL IV ONE ×2 (10:35→11:29)
[2022-01-04] MEDS ORDERED: METOPROLOL TARTRATE 25MG TABLET PO SCH (11:15)
[2022-01-04] MEDS: PROPRANOLOL HCL 10MG TABLET PO SCH ×3 (12:41→21:39)
[2022-01-04 14:23] LABS: HEMATOCRIT 24.9 % (36.0-48.0); HEMOGLOBIN 8.3 g/dL (12.0-16.0)
[2022-01-04] MEDS ORDERED: VANCOMYCIN HCL 1 GM/VIAL PO SCH (18:00)
[2022-01-04] MEDS ORDERED: VANCOMYCIN 1000MG/20ML ORAL SOLN PO SCH (18:00)
[2022-01-04] MEDS: VANCOMYCIN 1000MG/20ML ORAL SOLN PO SCH (18:13)
[2022-01-04 18:37] LABS: HEMATOCRIT 24.4 % (36.0-48.0); HEMOGLOBIN 8.2 g/dL (12.0-16.0)
[2022-01-05] VITALS (43 sets, daily range): BP systolic 101–145; BP diastolic 42–79
[2022-01-05 01:11] LABS: HEMATOCRIT 26.2 % (36.0-48.0); HEMOGLOBIN 8.7 g/dL (12.0-16.0)
[2022-01-05 02:11] LABS: HEPATITIS B SURFACE ANTIGEN NEGATIVE
[2022-01-05] MEDS: VANCOMYCIN 1000MG/20ML ORAL SOLN PO SCH ×5 (05:49→23:39)
[2022-01-05] MEDS: PHENYLEPH/PRAMOXIN/GLYCR/PET RECTAL CREAM 26GM PR SCH ×3 (05:49→23:26)
[2022-01-05 06:10] LABS: HEMATOCRIT. 26.7 % (36.0-48.0); MEAN CORPUSCULAR HEMOGLOBIN 32.4 pg (28.0-32.0); MEAN CORPUSCULAR VOLUME 96.2 fL (81.0-99.0); MEAN PLATELET VOLUME 9.8 fl (7.4-10.4); PLATELET 66 x1000/uL (130-400); RED BLOOD CELL COUNT 2.78 mill/uL (4.2-5.4); RED CELL DISTRIBUTION WIDTH 20.4 % (11.6-14.6)
[2022-01-05] MEDS: INSULIN LISPRO 100 UNITS/ML SUBCUT SCH ×3 (08:20→21:00)
[2022-01-05] MEDS: BLOOD SUGAR DIAGNOSTIC STRIP TEST SCH ×4 (08:23→21:12)
[2022-01-05] MEDS: PIPERACILLIN/TAZOBACTAM 3.375G in DEXT 5% WATER 50ML IV SCH (08:30)
[2022-01-05] MEDS: RIFAXIMIN 550 MG TABLET PO SCH ×2 (08:30→23:25)
[2022-01-05] MEDS: PROPRANOLOL HCL 10MG TABLET PO SCH ×2 (08:30→21:00)
[2022-01-05] MEDS: PANTOPRAZOLE SODIUM 40 MG/VIAL IV SCH ×2 (08:31→23:18)
[2022-01-05 09:55] LABS: PLATELET ESTIMATE DECREASED
[2022-01-05] MEDS: LACTULOSE 20G/30ML UDC PO SCH ×3 (12:07→23:25)
[2022-01-05] MEDS ORDERED: LACTULOSE 20G/30ML UDC PO SCH (21:00)
[2022-01-05] MEDS ORDERED: EPOETIN ALFA-EPBX 10,000 UNIT/ML VIAL SUBCUT SCH (21:00)
[2022-01-06] VITALS (17 sets, daily range): BP systolic 82–105; BP diastolic 38–70
[2022-01-06 06:27] LABS: HEMATOCRIT. 22.7 % (36.0-48.0); HEMOGLOBIN. 7.8 g/dL (12.0-16.0); MEAN CORPUSCULAR HEMOGLOBIN 32.6 pg (28.0-32.0); MEAN CORPUSCULAR VOLUME 94.5 fL (81.0-99.0); MEAN PLATELET VOLUME 8.7 fl (7.4-10.4); PLATELET 51 x1000/uL (130-400); RED CELL DISTRIBUTION WIDTH 20.3 % (11.6-14.6)
[2022-01-06] MEDS: LACTULOSE 20G/30ML UDC PO SCH ×3 (06:27→21:44)
[2022-01-06] MEDS: VANCOMYCIN 1000MG/20ML ORAL SOLN PO SCH ×3 (06:27→18:08)
[2022-01-06] MEDS: PHENYLEPH/PRAMOXIN/GLYCR/PET RECTAL CREAM 26GM PR SCH ×3 (06:27→21:45)
[2022-01-06] MEDS: BLOOD SUGAR DIAGNOSTIC STRIP TEST SCH ×4 (06:29→21:39)
[2022-01-06] MEDS: INSULIN LISPRO 100 UNITS/ML SUBCUT SCH ×4 (07:39→21:00)
[2022-01-06] MEDS: PROPRANOLOL HCL 10MG TABLET PO SCH ×2 (08:51→21:00)
[2022-01-06] MEDS: RIFAXIMIN 550 MG TABLET PO SCH ×2 (08:51→21:45)
[2022-01-06] MEDS: PANTOPRAZOLE SODIUM 40 MG/VIAL IV SCH ×2 (08:51→21:45)
[2022-01-06] MEDS ORDERED: POTASSIUM CHLORIDE 20MEQ/PACKET PO NR (12:00)
[2022-01-06 17:16] LABS: PLATELET ESTIMATE DECREASED
[2022-01-07] VITALS (31 sets, daily range): BP systolic 84–129; BP diastolic 28–65
[2022-01-07] MEDS: VANCOMYCIN 1000MG/20ML ORAL SOLN PO SCH ×4 (00:05→18:22)
[2022-01-07] MEDS: LACTULOSE 20G/30ML UDC PO SCH ×3 (06:19→21:28)
[2022-01-07] MEDS: PHENYLEPH/PRAMOXIN/GLYCR/PET RECTAL CREAM 26GM PR SCH ×3 (06:20→21:28)
[2022-01-07 06:33] LABS: HEMATOCRIT. 21.1 % (36.0-48.0); HEMOGLOBIN. 7.3 g/dL (12.0-16.0); MEAN CORPUSCULAR HEMOGLOBIN 33.1 pg (28.0-32.0); MEAN CORPUSCULAR VOLUME 96.5 fL (81.0-99.0); MEAN PLATELET VOLUME 8.6 fl (7.4-10.4); RED BLOOD CELL COUNT 2.19 mill/uL (4.2-5.4); RED CELL DISTRIBUTION WIDTH 21.1 % (11.6-14.6)
[2022-01-07] MEDS: BLOOD SUGAR DIAGNOSTIC STRIP TEST SCH ×4 (06:42→21:28)
[2022-01-07 06:57] LABS: PLATELET 47 x1000/uL (130-400)
[2022-01-07] MEDS: INSULIN LISPRO 100 UNITS/ML SUBCUT SCH ×4 (08:00→21:00)
[2022-01-07 08:11] LABS: PLATELET ESTIMATE MARKEDLY DECREASED
[2022-01-07] MEDS: PROPRANOLOL HCL 10MG TABLET PO SCH ×2 (08:27→21:00)
[2022-01-07] MEDS: RIFAXIMIN 550 MG TABLET PO SCH (08:51)
[2022-01-07] MEDS: PANTOPRAZOLE SODIUM 40 MG/VIAL IV SCH ×2 (08:52→21:21)
[2022-01-07] MEDS ORDERED: EPOETIN ALFA-EPBX 4,000 UNIT/ML VIAL SUBCUT SCH (21:00)
[2022-01-07] MEDS ORDERED: EPOETIN ALFA-EPBX 10,000 UNIT/ML VIAL SUBCUT SCH (21:00)
[2022-01-08] VITALS (17 sets, daily range): BP systolic 93–131; BP diastolic 47–77
[2022-01-08] MEDS: VANCOMYCIN 1000MG/20ML ORAL SOLN PO SCH ×4 (00:14→22:05)
[2022-01-08] MEDS: PHENYLEPH/PRAMOXIN/GLYCR/PET RECTAL CREAM 26GM PR SCH ×3 (05:09→22:05)
[2022-01-08] MEDS: LACTULOSE 20G/30ML UDC PO SCH (05:09)
[2022-01-08 05:11] LABS: BASOPHILS % 0.7 % (0.0-2.0); EOSINOPHILS % 8.4 % (0.0-5.0); HEMATOCRIT. 27.1 % (36.0-48.0); HEMOGLOBIN. 9.2 g/dL (12.0-16.0); LYMPHOCYTES % 31.9 % (20.0-50.0); MEAN CORPUSCULAR HEMOGLOBIN 32.3 pg (28.0-32.0); MEAN CORPUSCULAR VOLUME 94.8 fL (81.0-99.0); MEAN PLATELET VOLUME 8.5 fl (7.4-10.4); MONOCYTES % 13.4 % (2.0-8.0); NEUTROPHILS % 45.6 % (40.0-76.0); PLATELET 59 x1000/uL (130-400); RED BLOOD CELL COUNT 2.86 mill/uL (4.2-5.4); RED CELL DISTRIBUTION WIDTH 18.9 % (11.6-14.6)
[2022-01-08] MEDS: BLOOD SUGAR DIAGNOSTIC STRIP TEST SCH ×4 (07:30→21:00)
[2022-01-08] MEDS: INSULIN LISPRO 100 UNITS/ML SUBCUT SCH ×4 (07:33→22:18)
[2022-01-08] MEDS: PROPRANOLOL HCL 10MG TABLET PO SCH ×2 (08:09→21:00)
[2022-01-08] MEDS: PANTOPRAZOLE SODIUM 40 MG/VIAL IV SCH ×2 (08:09→22:04)
[2022-01-09] VITALS (9 sets, daily range): BP systolic 94–119; BP diastolic 48–89
[2022-01-09] MEDS: PHENYLEPH/PRAMOXIN/GLYCR/PET RECTAL CREAM 26GM PR SCH ×2 (05:47→14:06)
[2022-01-09] MEDS: VANCOMYCIN 1000MG/20ML ORAL SOLN PO SCH ×3 (05:47→12:52)
[2022-01-09] MEDS: BLOOD SUGAR DIAGNOSTIC STRIP TEST SCH ×2 (06:34→12:31)
[2022-01-09 06:59] LABS: HEMATOCRIT. 26.7 % (36.0-48.0); HEMOGLOBIN. 8.9 g/dL (12.0-16.0); MEAN CORPUSCULAR VOLUME 96.5 fL (81.0-99.0); MEAN PLATELET VOLUME 8.9 fl (7.4-10.4); PLATELET 52 x1000/uL (130-400); RED BLOOD CELL COUNT 2.77 mill/uL (4.2-5.4); RED CELL DISTRIBUTION WIDTH 19.6 % (11.6-14.6)
[2022-01-09] MEDS: INSULIN LISPRO 100 UNITS/ML SUBCUT SCH ×2 (08:00→12:53)
[2022-01-09] MEDS: PANTOPRAZOLE SODIUM 40 MG/VIAL IV SCH (08:58)
[2022-01-09] MEDS: PROPRANOLOL HCL 10MG TABLET PO SCH (08:59)
[2022-01-09] MEDS ORDERED: POTASSIUM CHLORIDE 20MEQ/PACKET PO NR (09:45)
[2022-01-10 08:22] LABS: PLATELET ESTIMATE DECREASED
== END 2022-01-09 14:45 | disposition home or self-care (01) | DRG 371 ==
LOC: ER 10:39 → CVICU 11:25 → EDBEDREQ 11:43 → ENRESERV 12:19 → 5WST 01-05 12:55 → 5EST 01-05 13:03
PROVIDERS: ADMIT Internal Medicine; ATTEND Internal Medicine
PROC: 02HV33Z Insertion of Infusion Device into Superior Vena Cava, Percutaneous Approach (ICD-10-PCS; 2022-01-02)
PROC: B548ZZA Ultrasonography of Superior Vena Cava, Guidance (ICD-10-PCS; 2022-01-02)
PROC: 30233N1 Transfusion of Nonautologous Red Blood Cells into Peripheral Vein, Percutaneous Approach (ICD-10-PCS; 2022-01-02)
PROC: 30233K1 Transfusion of Nonautologous Frozen Plasma into Peripheral Vein, Percutaneous Approach (ICD-10-PCS; 2022-01-02)
PROC: 30233R1 Transfusion of Nonautologous Platelets into Peripheral Vein, Percutaneous Approach (ICD-10-PCS; 2022-01-03)
PROC: 0DJ08ZZ Inspection of Upper Intestinal Tract, Via Natural or Artificial Opening Endoscopic (ICD-10-PCS; principal; 2022-01-04)
PROC: 5A1D70Z Performance of Urinary Filtration, Intermittent, Less than 6 Hours Per Day (ICD-10-PCS; 2022-01-05)
PROC: 5A1D70Z Performance of Urinary Filtration, Intermittent, Less than 6 Hours Per Day (ICD-10-PCS; 2022-01-08)
DX: A04.72 Enterocolitis due to Clostridium difficile, not specified as recurrent (principal); N17.0 Acute kidney failure with tubular necrosis; R57.8 Other shock; N18.6 End stage renal disease; R57.1 Hypovolemic shock; K62.5 Hemorrhage of anus and rectum; E46 Unspecified protein-calorie malnutrition; E87.2 Acidosis; K76.6 Portal hypertension; I47.2 Ventricular tachycardia; D62 Acute posthemorrhagic anemia; D68.9 Coagulation defect, unspecified; I12.0 Hypertensive chronic kidney disease with stage 5 chronic kidney disease or end stage renal disease; E72.20 Disorder of urea cycle metabolism, unspecified; I85.10 Secondary esophageal varices without bleeding; D53.9 Nutritional anemia, unspecified; D69.6 Thrombocytopenia, unspecified; E11.22 Type 2 diabetes mellitus with diabetic chronic kidney disease; E78.5 Hyperlipidemia, unspecified; K40.90 Unilateral inguinal hernia, without obstruction or gangrene, not specified as recurrent; K74.60 Unspecified cirrhosis of liver; K44.9 Diaphragmatic hernia without obstruction or gangrene; K31.89 Other diseases of stomach and duodenum; R26.89 Other abnormalities of gait and mobility; I95.9 Hypotension, unspecified; E87.6 Hypokalemia; I48.0 Paroxysmal atrial fibrillation; I27.20 Pulmonary hypertension, unspecified; I34.0 Nonrheumatic mitral (valve) insufficiency; Z20.822 Contact with and (suspected) exposure to COVID-19; K80.20 Calculus of gallbladder without cholecystitis without obstruction; D63.8 Anemia in other chronic diseases classified elsewhere; E78.00 Pure hypercholesterolemia, unspecified; Z87.01 Personal history of pneumonia (recurrent); Z99.2 Dependence on renal dialysis; Z68.23 Body mass index [BMI] 23.0-23.9, adult; Z79.899 Other long term (current) drug therapy
CPT/HCPCS: 36415; 36430; 36573; 36600; 71045; 74176; 78278; 80048; 80053; 80076; 80202; 82140; 82248; 82375; 82607; 82728; 82746; 82805; 82962; 83036; 83540; 83550; 83605; 83735; 84145; 84484; 85014; 85018; 85025; 85044; 86705; 86709; 86803; 86850; 86900; 86920; 86927; 87015; 87045; 87340; 87426; 87427; 87449; 87493; 89055; 93005; 93970; 99291; A9560; C1725; C9113; J0696; J0885; J1815; J2354; J2543; J2704; J3370; J3475; J3490; J7030; J7050; J7060; P9016; P9017; A4315; P9035; P9036

== ENCOUNTER 2022-02-11 18:30 | Inpatient (IN) | payer MEDICARE ==
[~2022-02-11] VITALS: Ht 152.4 cm; Wt 46.3 kg
[~2022-02-11 18:30] MED LIST changes: -BENA1TAB18 PO; -FERR325T6 PO; +GLIP5TAB12 MT; -METF-415 PO; +MIDO10TA MT; +PROP20TA7 MT; +SPIR25TA6 MT
[2022-02-11] MEDS ORDERED: PANTOPRAZOLE SODIUM 40 MG/VIAL IV STA (20:42)
[2022-02-11 21:16] LABS: CHLORIDE 95 mEq/L (98-107)
[2022-02-11 21:18] LABS: INR 1.3; PROTHROMBIN TIME 13.5 sec (9.6-11.0)
[2022-02-11 21:20] LABS: BASOPHILS % 0.2 % (0.0-2.0); HEMATOCRIT. 22.4 % (36.0-48.0); HEMOGLOBIN. 7.4 g/dL (12.0-16.0); LYMPHOCYTES % 17.5 % (20.0-50.0); MEAN CORPUSCULAR HEMOGLOBIN 34.8 pg (28.0-32.0); MEAN CORPUSCULAR VOLUME 105.5 fL (81.0-99.0); MEAN PLATELET VOLUME 9.4 fl (7.4-10.4); MONOCYTES % 11.9 % (2.0-8.0); NEUTROPHILS % 69.4 % (40.0-76.0); PLATELET 81 x1000/uL (130-400); RED BLOOD CELL COUNT 2.12 mill/uL (4.2-5.4); RED CELL DISTRIBUTION WIDTH 25.3 % (11.6-14.6)
[2022-02-11] MEDS ORDERED: NOREPINEPHRINE 8MG/250ML PMX 250 ML IV ONE (21:45)
[2022-02-11 22:31] LABS: PLATELET ESTIMATE DECREASED
[2022-02-12] VITALS (40 sets, daily range): BP systolic 78–137; BP diastolic 40–73
[2022-02-12] MEDS ORDERED: IPRATROPIUM/ALBUTEROL 0.5-3(2.5)MG/3ML NEB NEB PRN (11:30)
[2022-02-12] MEDS ORDERED: ONDANSETRON HCL 4MG/2ML INJ IV PRN (11:30)
[2022-02-12] MEDS ORDERED: SODIUM CHLORIDE 0.45% 1,000 ML IV SCH (12:00)
[2022-02-12] MEDS ORDERED: LIDOCAINE HCL 1% 10 MG/ML 10ML VIAL ONE (12:03)
[2022-02-12] MEDS: PANTOPRAZOLE SODIUM 40 MG/VIAL IV SCH ×2 (12:23→21:14)
[2022-02-12] MEDS: NOREPINEPHRINE 8 MG in DEXT 5% WATER 242 ML IV PRN ×2 (12:54→22:06)
[2022-02-12] MEDS ORDERED: DEXTROSE 50% WATER 50ML SYRINGE IV PRN (15:00)
[2022-02-12 15:12] LABS: BASOPHILS % 0.3 % (0.0-2.0); EOSINOPHILS % 1.1 % (0.0-5.0); HEMATOCRIT. 28.5 % (36.0-48.0); HEMOGLOBIN. 9.5 g/dL (12.0-16.0); LYMPHOCYTES % 12.3 % (20.0-50.0); MEAN CORPUSCULAR HEMOGLOBIN 34.2 pg (28.0-32.0); MEAN CORPUSCULAR VOLUME 102.4 fL (81.0-99.0); MEAN PLATELET VOLUME 8.8 fl (7.4-10.4); MONOCYTES % 7.6 % (2.0-8.0); NEUTROPHILS % 78.7 % (40.0-76.0); PLATELET 92 x1000/uL (130-400); RED BLOOD CELL COUNT 2.78 mill/uL (4.2-5.4)
[2022-02-12 15:19] LABS: CHLORIDE 97 mEq/L (98-107)
[2022-02-12 15:27] LABS: CREATINE KINASE 46 IU/L (26-192)
[2022-02-12 15:43] LABS: HEPATITIS B SURFACE ANTIGEN NEGATIVE
[2022-02-12] MEDS ORDERED: POTASSIUM CHLORIDE INJ 40 MEQ in DEXT 5% WATER 500 ML IV ONE (16:30)
[2022-02-12] MEDS: POTASSIUM CHLORIDE 20MEQ TABLET SR PO SCH ×2 (16:42→21:06)
[2022-02-12] MEDS ORDERED: PNEUMOCOCCAL 23-VAL P-SAC VAC 0.5 ML IM ONE (17:00)
[2022-02-12] MEDS: BLOOD SUGAR DIAGNOSTIC STRIP TEST SCH ×2 (17:00→20:45)
[2022-02-12] MEDS: MIDODRINE HCL 5MG TABLET PO SCH (17:16)
[2022-02-12] MEDS: POTASSIUM CHLORIDE INJ 40 MEQ in DEXT 5% WATER 250 ML IV SCH ×2 (17:32→22:06)
[2022-02-12] MEDS: INSULIN LISPRO 100 UNITS/ML SUBCUT SCH ×2 (17:35→21:07)
[2022-02-12 18:54] LABS: FOLIC ACID (FOLATE) SERUM 19.2 ng/mL (>5.38)
[2022-02-12] MEDS: EPOETIN ALFA-EPBX 10,000 UNIT/ML VIAL SUBCUT SCH (21:00)
[2022-02-12] MEDS: PHENYLEPHRINE/SHK LV/MO/PET RECTAL OINTMENT 57GM PR SCH (21:06)
[2022-02-13] VITALS (89 sets, daily range): BP systolic 56–124; BP diastolic 30–82
[2022-02-13 00:55] LABS: CREATINE KINASE 55 IU/L (26-192)
[2022-02-13] MEDS: BLOOD SUGAR DIAGNOSTIC STRIP TEST SCH ×4 (06:51→21:00)
[2022-02-13] MEDS: INSULIN LISPRO 100 UNITS/ML SUBCUT SCH ×4 (06:51→22:26)
[2022-02-13] MEDS ORDERED: LIDOCAINE HCL 1% 10 MG/ML 10ML VIAL ONE (08:34)
[2022-02-13] MEDS ORDERED: SODIUM BICARBONATE 4% (2.4MEQ) 5ML VIAL IV ONE (08:34)
[2022-02-13] MEDS: MIDODRINE HCL 5MG TABLET PO SCH ×3 (09:43→17:50)
[2022-02-13] MEDS: PHENYLEPHRINE/SHK LV/MO/PET RECTAL OINTMENT 57GM PR SCH ×2 (09:43→21:00)
[2022-02-13] MEDS: PANTOPRAZOLE SODIUM 40 MG/VIAL IV SCH ×2 (09:43→21:06)
[2022-02-13 10:33] LABS: BASOPHILS % 0.2 % (0.0-2.0); EOSINOPHILS % 1.7 % (0.0-5.0); HEMATOCRIT. 22.9 % (36.0-48.0); HEMOGLOBIN. 7.7 g/dL (12.0-16.0); MEAN CORPUSCULAR HEMOGLOBIN 34.3 pg (28.0-32.0); MEAN CORPUSCULAR VOLUME 101.8 fL (81.0-99.0); MEAN PLATELET VOLUME 8.8 fl (7.4-10.4); MONOCYTES % 6.6 % (2.0-8.0); NEUTROPHILS % 81.5 % (40.0-76.0); PLATELET 79 x1000/uL (130-400); RED BLOOD CELL COUNT 2.25 mill/uL (4.2-5.4); RED CELL DISTRIBUTION WIDTH 22.8 % (11.6-14.6)
[2022-02-13 10:44] LABS: INR 1.3; PROTHROMBIN TIME 13.5 sec (9.6-11.0)
[2022-02-13] MEDS: NOREPINEPHRINE 8 MG in DEXT 5% WATER 242 ML IV PRN (13:07)
[2022-02-13] MEDS ORDERED: ALBUMIN HUMAN 25GM/100ML (25%) IV ONE (13:45)
[2022-02-13] MEDS ORDERED: ALBUMIN HUMAN 25GM/100ML (25%) IV SCH (14:00)
[2022-02-13 16:07] LABS: HEMOGLOBIN 6.5 g/dL (12.0-16.0)
[2022-02-13] MEDS: PIPERACILLIN/TAZOBACTAM 3.375 G in DEXTROSE 5% WATER 50 ML IV SCH ×2 (17:50→22:26)
[2022-02-14] VITALS (99 sets, daily range): BP systolic 20–176; BP diastolic 13–118
[2022-02-14] MEDS: NOREPINEPHRINE 8 MG in DEXT 5% WATER 242 ML IV PRN (02:17)
[2022-02-14 02:23] LABS: HEMATOCRIT 33.4 % (36.0-48.0); HEMOGLOBIN 11.2 g/dL (12.0-16.0)
[2022-02-14 06:13] LABS: BASOPHILS % 0.2 % (0.0-2.0); EOSINOPHILS % 2.6 % (0.0-5.0); HEMATOCRIT. 32.7 % (36.0-48.0); HEMOGLOBIN. 10.8 g/dL (12.0-16.0); LYMPHOCYTES % 13.6 % (20.0-50.0); MEAN CORPUSCULAR HEMOGLOBIN 32.6 pg (28.0-32.0); MEAN CORPUSCULAR VOLUME 98.4 fL (81.0-99.0); MEAN PLATELET VOLUME 8.6 fl (7.4-10.4); MONOCYTES % 8.5 % (2.0-8.0); NEUTROPHILS % 75.1 % (40.0-76.0); PLATELET 59 x1000/uL (130-400); RED BLOOD CELL COUNT 3.32 mill/uL (4.2-5.4); RED CELL DISTRIBUTION WIDTH 18.2 % (11.6-14.6)
[2022-02-14 06:17] LABS: CHLORIDE 107 mEq/L (98-107)
[2022-02-14] MEDS: BLOOD SUGAR DIAGNOSTIC STRIP TEST SCH ×4 (07:50→21:57)
[2022-02-14] MEDS: PANTOPRAZOLE SODIUM 40 MG/VIAL IV SCH ×2 (08:13→21:56)
[2022-02-14] MEDS: MIDODRINE HCL 5MG TABLET PO SCH ×3 (08:14→17:54)
[2022-02-14] MEDS: PIPERACILLIN/TAZOBACTAM 3.375 G in DEXTROSE 5% WATER 50 ML IV SCH ×2 (08:14→21:56)
[2022-02-14] MEDS: PHENYLEPH/PRAMOXIN/GLYCR/PET RECTAL CREAM 26GM PR SCH ×2 (08:15→21:00)
[2022-02-14] MEDS: INSULIN LISPRO 100 UNITS/ML SUBCUT SCH ×4 (08:20→21:00)
[2022-02-14 12:08] LABS: HEMATOCRIT 33.8 % (36.0-48.0); HEMOGLOBIN 11.2 g/dL (12.0-16.0)
[2022-02-14] MEDS ORDERED: EPOETIN ALFA-EPBX 4,000 UNIT/ML VIAL SUBCUT SCH (21:00)
[2022-02-14] MEDS ORDERED: EPOETIN ALFA-EPBX 10,000 UNIT/ML VIAL SUBCUT SCH (21:00)
[2022-02-14] MEDS ORDERED: SORBITOL 70% SOLN 30ML PO NR (21:00)
[2022-02-14] MEDS: NOREPINEPHRINE 32 MG in DEXT 5% WATER 218 ML IV PRN (22:02)
[2022-02-15] VITALS (94 sets, daily range): BP systolic 54–146; BP diastolic 17–86
[2022-02-15] MEDS ORDERED: NA PHOS,M-B/NA PHOS,DI-BA ENEMA 118ML PR NR ×2 (06:00→06:15)
[2022-02-15] MEDS ORDERED: SORBITOL 70% SOLN 30ML PO NR (06:00)
[2022-02-15 06:28] LABS: BASOPHILS % 0.4 % (0.0-2.0); EOSINOPHILS % 3.1 % (0.0-5.0); HEMATOCRIT. 36.4 % (36.0-48.0); HEMOGLOBIN. 12.3 g/dL (12.0-16.0); INR 1.4; LYMPHOCYTES % 12.8 % (20.0-50.0); MEAN CORPUSCULAR HEMOGLOBIN 32.9 pg (28.0-32.0); MEAN CORPUSCULAR VOLUME 97.2 fL (81.0-99.0); MEAN PLATELET VOLUME 8.5 fl (7.4-10.4); MONOCYTES % 9.6 % (2.0-8.0); NEUTROPHILS % 74.1 % (40.0-76.0); PLATELET 63 x1000/uL (130-400); PROTHROMBIN TIME 14.3 sec (9.6-11.0); RED BLOOD CELL COUNT 3.75 mill/uL (4.2-5.4); RED CELL DISTRIBUTION WIDTH 19.4 % (11.6-14.6)
[2022-02-15 06:29] LABS: CHLORIDE 105 mEq/L (98-107)
[2022-02-15] MEDS: BLOOD SUGAR DIAGNOSTIC STRIP TEST SCH ×4 (07:50→21:18)
[2022-02-15] MEDS: INSULIN LISPRO 100 UNITS/ML SUBCUT SCH ×4 (08:20→21:34)
[2022-02-15] MEDS: PHENYLEPH/PRAMOXIN/GLYCR/PET RECTAL CREAM 26GM PR SCH ×2 (09:00→21:33)
[2022-02-15] MEDS: PIPERACILLIN/TAZOBACTAM 3.375 G in DEXTROSE 5% WATER 50 ML IV SCH ×2 (09:50→21:33)
[2022-02-15] MEDS: PANTOPRAZOLE SODIUM 40 MG/VIAL IV SCH ×2 (09:50→21:33)
[2022-02-15] MEDS: MIDODRINE HCL 5MG TABLET PO SCH ×3 (09:50→17:24)
[2022-02-15] MEDS ORDERED: DILTIAZEM HCL 5MG/ML 5ML VIAL IV NR (11:30)
[2022-02-15] MEDS ORDERED: POTASSIUM CHLORIDE 20MEQ TABLET SR PO SCH (12:00)
[2022-02-15] MEDS: DILTIAZEM 125MG/125ML PMX 125 ML IV PRN ×2 (12:39→21:40)
[2022-02-15] MEDS ORDERED: PROPOFOL 200MG/20ML VIAL IV ONE (13:12)
[2022-02-15] MEDS ORDERED: EPHEDRINE SULFATE 50MG/ML VIAL ONE (13:14)
[2022-02-15] MEDS ORDERED: DEXAMETHASONE 4MG/ML 1ML VIAL ONE (13:14)
[2022-02-15] MEDS ORDERED: ONDANSETRON HCL 4MG/2ML INJ ONE (13:14)
[2022-02-15] MEDS ORDERED: PHENYLEPHRINE HCL 10 MG/ML 1ML (IV VIAL) IV ONE (13:15)
[2022-02-16] VITALS (93 sets, daily range): BP systolic 76–113; BP diastolic 41–69
[2022-02-16] MEDS: NOREPINEPHRINE 32 MG in DEXT 5% WATER 218 ML IV PRN (00:44)
[2022-02-16] MEDS: DILTIAZEM HCL 30MG TABLET PO SCH ×2 (01:33→05:44)
[2022-02-16 06:04] LABS: BASOPHILS % 0.6 % (0.0-2.0); EOSINOPHILS % 3.8 % (0.0-5.0); HEMATOCRIT. 36.1 % (36.0-48.0); HEMOGLOBIN. 11.8 g/dL (12.0-16.0); LYMPHOCYTES % 9.8 % (20.0-50.0); MEAN CORPUSCULAR HEMOGLOBIN 32.8 pg (28.0-32.0); MEAN CORPUSCULAR VOLUME 100.2 fL (81.0-99.0); MEAN PLATELET VOLUME 8.7 fl (7.4-10.4); MONOCYTES % 13.5 % (2.0-8.0); NEUTROPHILS % 72.3 % (40.0-76.0); PLATELET 64 x1000/uL (130-400); RED CELL DISTRIBUTION WIDTH 20.8 % (11.6-14.6)
[2022-02-16 06:09] LABS: INR 1.4; PROTHROMBIN TIME 14.7 sec (9.6-11.0)
[2022-02-16 06:11] LABS: CHLORIDE 106 mEq/L (98-107)
[2022-02-16] MEDS: INSULIN LISPRO 100 UNITS/ML SUBCUT SCH ×3 (08:20→18:53)
[2022-02-16] MEDS: BLOOD SUGAR DIAGNOSTIC STRIP TEST SCH ×4 (08:38→21:00)
[2022-02-16] MEDS: PIPERACILLIN/TAZOBACTAM 3.375 G in DEXTROSE 5% WATER 50 ML IV SCH ×2 (08:43→21:27)
[2022-02-16] MEDS: MIDODRINE HCL 5MG TABLET PO SCH ×3 (08:43→17:00)
[2022-02-16] MEDS: PANTOPRAZOLE SODIUM 40 MG/VIAL IV SCH ×2 (08:43→21:25)
[2022-02-16] MEDS: PHENYLEPH/PRAMOXIN/GLYCR/PET RECTAL CREAM 26GM PR SCH ×2 (08:43→21:00)
[2022-02-16] MEDS: PHENYLEPHRINE 100 MG in DEXT 5% WATER 240 ML IV PRN (12:38)
[2022-02-16] MEDS ORDERED: ETOMIDATE 2MG/ML 10ML VIAL IV ONE (15:08)
[2022-02-16] MEDS: ACETAMINOPHEN 325MG TABLET PO PRN (15:42)
[2022-02-16] MEDS: SUCRALFATE 1 G/10 ML UDC PO SCH ×2 (17:50→21:27)
[2022-02-16 18:18] LABS: HEPATITIS B SURFACE ANTIGEN NEGATIVE
[2022-02-17] VITALS (91 sets, daily range): BP systolic 41–124; BP diastolic 27–95
[2022-02-17] MEDS: INSULIN LISPRO 100 UNITS/ML SUBCUT SCH ×5 (00:38→21:29)
[2022-02-17] MEDS: BLOOD SUGAR DIAGNOSTIC STRIP TEST SCH ×4 (07:50→21:58)
[2022-02-17] MEDS: SUCRALFATE 1 G/10 ML UDC PO SCH ×4 (07:50→21:27)
[2022-02-17] MEDS: PANTOPRAZOLE SODIUM 40 MG/VIAL IV SCH ×2 (09:00→22:00)
[2022-02-17] MEDS: PIPERACILLIN/TAZOBACTAM 3.375 G in DEXTROSE 5% WATER 50 ML IV SCH ×2 (09:00→21:27)
[2022-02-17] MEDS: PHENYLEPH/PRAMOXIN/GLYCR/PET RECTAL CREAM 26GM PR SCH ×2 (09:00→21:00)
[2022-02-17 12:14] LABS: HEMATOCRIT. 32.7 % (36.0-48.0); HEMOGLOBIN. 10.6 g/dL (12.0-16.0); MEAN CORPUSCULAR HEMOGLOBIN 32.6 pg (28.0-32.0); MEAN CORPUSCULAR VOLUME 100.6 fL (81.0-99.0); MEAN PLATELET VOLUME 8.9 fl (7.4-10.4); PLATELET 72 x1000/uL (130-400); RED BLOOD CELL COUNT 3.25 mill/uL (4.2-5.4); RED CELL DISTRIBUTION WIDTH 22.3 % (11.6-14.6)
[2022-02-17 12:28] LABS: PHOSPHORUS 6.7 mg/dL (2.5-4.9)
[2022-02-17] MEDS: MIDODRINE HCL 5MG TABLET PO SCH ×2 (12:42→17:00)
[2022-02-17] MEDS: PHENYLEPHRINE 100 MG in DEXT 5% WATER 240 ML IV PRN (16:00)
[2022-02-17 19:48] LABS: PLATELET ESTIMATE DECREASED
[2022-02-18] VITALS (79 sets, daily range): BP systolic 68–141; BP diastolic 38–92
[2022-02-18] MEDS: NOREPINEPHRINE 32 MG in DEXT 5% WATER 218 ML IV PRN ×2 (02:19→05:43)
[2022-02-18] MEDS: PHENYLEPHRINE 100 MG in DEXT 5% WATER 240 ML IV PRN ×2 (05:43→20:45)
[2022-02-18 06:25] LABS: HEMATOCRIT. 38.7 % (36.0-48.0); MEAN CORPUSCULAR VOLUME 98.4 fL (81.0-99.0); MEAN PLATELET VOLUME 8.9 fl (7.4-10.4); PLATELET 79 x1000/uL (130-400); RED BLOOD CELL COUNT 3.93 mill/uL (4.2-5.4); RED CELL DISTRIBUTION WIDTH 21.9 % (11.6-14.6)
[2022-02-18] MEDS: BLOOD SUGAR DIAGNOSTIC STRIP TEST SCH ×4 (07:50→20:53)
[2022-02-18] MEDS: PANTOPRAZOLE SODIUM 40 MG/VIAL IV SCH ×2 (08:37→20:35)
[2022-02-18] MEDS: MIDODRINE HCL 5MG TABLET PO SCH ×3 (08:37→17:42)
[2022-02-18] MEDS: SUCRALFATE 1 G/10 ML UDC PO SCH ×4 (08:37→20:36)
[2022-02-18] MEDS: INSULIN LISPRO 100 UNITS/ML SUBCUT SCH ×4 (08:38→20:53)
[2022-02-18] MEDS: PHENYLEPH/PRAMOXIN/GLYCR/PET RECTAL CREAM 26GM PR SCH ×2 (08:38→20:37)
[2022-02-18 10:27] LABS: NUCLEATED RED BLOOD CELLS 1 /100 WBC; PLATELET ESTIMATE DECREASED
[2022-02-18] MEDS ORDERED: ALBUMIN HUMAN 25GM/100ML (25%) IV NR (10:45)
[2022-02-18] MEDS: ACETAMINOPHEN 325MG TABLET PO PRN (17:43)
[2022-02-19] VITALS (100 sets, daily range): BP systolic 65–122; BP diastolic 36–75
[2022-02-19] MEDS: BLOOD SUGAR DIAGNOSTIC STRIP TEST SCH ×4 (08:14→20:39)
[2022-02-19] MEDS: PHENYLEPHRINE 100 MG in DEXT 5% WATER 240 ML IV PRN ×2 (08:14→20:51)
[2022-02-19] MEDS: INSULIN LISPRO 100 UNITS/ML SUBCUT SCH ×4 (08:16→20:53)
[2022-02-19] MEDS: PHENYLEPH/PRAMOXIN/GLYCR/PET RECTAL CREAM 26GM PR SCH ×2 (09:00→20:41)
[2022-02-19] MEDS: PANTOPRAZOLE SODIUM 40 MG/VIAL IV SCH ×2 (09:08→20:38)
[2022-02-19] MEDS: MIDODRINE HCL 5MG TABLET PO SCH ×3 (09:08→17:22)
[2022-02-19] MEDS: SUCRALFATE 1 G/10 ML UDC PO SCH ×4 (09:08→20:39)
[2022-02-19] MEDS ORDERED: SODIUM CHLORIDE 0.9% 1,000 ML IV ONE (09:45)
[2022-02-19 11:05] LABS: BASOPHILS % 0.2 % (0.0-2.0); HEMOGLOBIN. 11.7 g/dL (12.0-16.0); LYMPHOCYTES % 19.1 % (20.0-50.0); MEAN CORPUSCULAR HEMOGLOBIN 33.2 pg (28.0-32.0); MEAN CORPUSCULAR VOLUME 99.5 fL (81.0-99.0); MEAN PLATELET VOLUME 8.4 fl (7.4-10.4); MONOCYTES % 12.1 % (2.0-8.0); NEUTROPHILS % 64.6 % (40.0-76.0); RED BLOOD CELL COUNT 3.52 mill/uL (4.2-5.4); RED CELL DISTRIBUTION WIDTH 23.1 % (11.6-14.6)
[2022-02-19] MEDS: NOREPINEPHRINE 32 MG in DEXT 5% WATER 218 ML IV PRN (12:01)
[2022-02-19] MEDS: ACETAMINOPHEN 325MG TABLET PO PRN (15:54)
[2022-02-20] VITALS (92 sets, daily range): BP systolic 65–129; BP diastolic 30–72
[2022-02-20 05:44] LABS: BASOPHILS % 0.1 % (0.0-2.0); EOSINOPHILS % 6.2 % (0.0-5.0); HEMOGLOBIN. 11.4 g/dL (12.0-16.0); LYMPHOCYTES % 19.6 % (20.0-50.0); MEAN CORPUSCULAR HEMOGLOBIN 33.1 pg (28.0-32.0); MEAN CORPUSCULAR VOLUME 98.3 fL (81.0-99.0); MEAN PLATELET VOLUME 8.9 fl (7.4-10.4); MONOCYTES % 13.3 % (2.0-8.0); NEUTROPHILS % 60.8 % (40.0-76.0); PLATELET 51 x1000/uL (130-400); RED BLOOD CELL COUNT 3.46 mill/uL (4.2-5.4); RED CELL DISTRIBUTION WIDTH 21.4 % (11.6-14.6)
[2022-02-20] MEDS: BLOOD SUGAR DIAGNOSTIC STRIP TEST SCH ×4 (07:39→21:43)
[2022-02-20] MEDS: INSULIN LISPRO 100 UNITS/ML SUBCUT SCH ×4 (07:39→21:00)
[2022-02-20] MEDS: SUCRALFATE 1 G/10 ML UDC PO SCH ×4 (08:27→21:44)
[2022-02-20] MEDS: MIDODRINE HCL 5MG TABLET PO SCH ×3 (08:27→17:07)
[2022-02-20] MEDS: PANTOPRAZOLE SODIUM 40 MG/VIAL IV SCH ×2 (08:27→21:44)
[2022-02-20] MEDS: PHENYLEPH/PRAMOXIN/GLYCR/PET RECTAL CREAM 26GM PR SCH ×2 (08:28→21:45)
[2022-02-20] MEDS ORDERED: POTASSIUM CHLORIDE 20MEQ TABLET SR PO NR (09:00)
[2022-02-20] MEDS: PHENYLEPHRINE 100 MG in DEXT 5% WATER 240 ML IV PRN (09:08)
[2022-02-20 12:46] LABS: PLATELET 47 x1000/uL (130-400)
[2022-02-20] MEDS: LACTULOSE 20G/30ML UDC PO SCH ×3 (14:00→21:45)
[2022-02-20 18:33] LABS: HEPATITIS B SURFACE ANTIGEN NEGATIVE
[2022-02-21] VITALS (94 sets, daily range): BP systolic 57–142; BP diastolic 26–87
[2022-02-21] MEDS: NOREPINEPHRINE 32 MG in DEXT 5% WATER 218 ML IV PRN (00:42)
[2022-02-21] MEDS: PHENYLEPHRINE 100 MG in DEXT 5% WATER 240 ML IV PRN ×2 (00:47→14:07)
[2022-02-21] MEDS: DILTIAZEM 125MG/125ML PMX 125 ML IV PRN (05:11)
[2022-02-21 06:55] LABS: HEMOGLOBIN. 10.7 g/dL (12.0-16.0); MEAN CORPUSCULAR HEMOGLOBIN 33.2 pg (28.0-32.0); MEAN CORPUSCULAR VOLUME 99.6 fL (81.0-99.0); MEAN PLATELET VOLUME 9.1 fl (7.4-10.4); PLATELET 53 x1000/uL (130-400); RED BLOOD CELL COUNT 3.22 mill/uL (4.2-5.4); RED CELL DISTRIBUTION WIDTH 21.4 % (11.6-14.6)
[2022-02-21] MEDS ORDERED: ALBUMIN HUMAN 25GM/100ML (25%) IV ONE (07:00)
[2022-02-21] MEDS: BLOOD SUGAR DIAGNOSTIC STRIP TEST SCH ×4 (07:01→20:57)
[2022-02-21] MEDS: LACTULOSE 20G/30ML UDC PO SCH ×3 (07:32→21:00)
[2022-02-21] MEDS ORDERED: LIDOCAINE HCL 1% 10 MG/ML 10ML VIAL ONE (08:17)
[2022-02-21] MEDS ORDERED: SODIUM BICARBONATE 4% (2.4MEQ) 5ML VIAL IV ONE (08:18)
[2022-02-21] MEDS: INSULIN LISPRO 100 UNITS/ML SUBCUT SCH ×4 (08:20→21:00)
[2022-02-21] MEDS: ALBUMIN HUMAN 25GM/100ML (25%) IV PRN (08:36)
[2022-02-21] MEDS: PHENYLEPH/PRAMOXIN/GLYCR/PET RECTAL CREAM 26GM PR SCH ×2 (09:00→20:57)
[2022-02-21] MEDS: MIDODRINE HCL 5MG TABLET PO SCH ×3 (09:22→17:48)
[2022-02-21] MEDS: SUCRALFATE 1 G/10 ML UDC PO SCH ×4 (09:22→20:57)
[2022-02-21] MEDS: PANTOPRAZOLE SODIUM 40 MG/VIAL IV SCH ×2 (09:22→20:57)
[2022-02-21] MEDS ORDERED: MIDODRINE HCL 5MG TABLET PO NR (10:30)
[2022-02-21 15:14] LABS: CREATINE KINASE 46 IU/L (26-192); CREATINE KINASE MB FRACTION 11.4 ng/mL (0.5-3.6)
[2022-02-21] MEDS: FLUDROCORTISONE ACETATE 0.1MG TABLET PO SCH (17:48)
[2022-02-21] MEDS: ALBUMIN HUMAN 12.5GM/50ML (25%) IV SCH (17:48)
[2022-02-21 21:30] LABS: PLATELET ESTIMATE MARKEDLY DECREASED
[2022-02-22] VITALS (81 sets, daily range): BP systolic 40–140; BP diastolic 21–84
[2022-02-22] MEDS: ALBUMIN HUMAN 12.5GM/50ML (25%) IV SCH (00:38)
[2022-02-22 05:32] LABS: BASOPHILS % 0.4 % (0.0-2.0); EOSINOPHILS % 5.1 % (0.0-5.0); HEMATOCRIT. 25.6 % (36.0-48.0); HEMOGLOBIN. 8.6 g/dL (12.0-16.0); LYMPHOCYTES % 11.8 % (20.0-50.0); MEAN CORPUSCULAR HEMOGLOBIN 33.6 pg (28.0-32.0); MEAN CORPUSCULAR VOLUME 99.8 fL (81.0-99.0); MEAN PLATELET VOLUME 9.6 fl (7.4-10.4); NEUTROPHILS % 69.7 % (40.0-76.0); PLATELET 55 x1000/uL (130-400); RED BLOOD CELL COUNT 2.56 mill/uL (4.2-5.4)
[2022-02-22] MEDS: LACTULOSE 20G/30ML UDC PO SCH ×3 (06:37→21:39)
[2022-02-22] MEDS: BLOOD SUGAR DIAGNOSTIC STRIP TEST SCH ×4 (07:50→21:39)
[2022-02-22] MEDS: INSULIN LISPRO 100 UNITS/ML SUBCUT SCH ×4 (08:15→21:00)
[2022-02-22] MEDS: SUCRALFATE 1 G/10 ML UDC PO SCH ×4 (08:29→21:39)
[2022-02-22] MEDS: MIDODRINE HCL 5MG TABLET PO SCH ×3 (08:29→17:25)
[2022-02-22] MEDS: FLUDROCORTISONE ACETATE 0.1MG TABLET PO SCH (08:30)
[2022-02-22] MEDS: PANTOPRAZOLE SODIUM 40 MG/VIAL IV SCH ×2 (08:30→21:39)
[2022-02-22] MEDS: PHENYLEPH/PRAMOXIN/GLYCR/PET RECTAL CREAM 26GM PR SCH ×2 (08:30→21:42)
[2022-02-22] MEDS ORDERED: POTASSIUM CHLORIDE INJ 40 MEQ in DEXT 5% WATER 500 ML IV NR (12:00)
[2022-02-22] MEDS ORDERED: KCL 20MEQ/100ML X 2 FOR TOTAL KCL 40MEQ/200ML IV SCH (13:00)
[2022-02-22] MEDS: PHENYLEPHRINE 100 MG in DEXT 5% WATER 240 ML IV PRN (16:38)
[2022-02-23] VITALS (50 sets, daily range): BP systolic 75–136; BP diastolic 31–76
[2022-02-23 05:55] LABS: BASOPHILS % 0.3 % (0.0-2.0); EOSINOPHILS % 5.3 % (0.0-5.0); HEMOGLOBIN. 9.2 g/dL (12.0-16.0); LYMPHOCYTES % 10.8 % (20.0-50.0); MEAN CORPUSCULAR HEMOGLOBIN 33.5 pg (28.0-32.0); MEAN CORPUSCULAR VOLUME 101.7 fL (81.0-99.0); MEAN PLATELET VOLUME 9.6 fl (7.4-10.4); NEUTROPHILS % 71.6 % (40.0-76.0); PLATELET 59 x1000/uL (130-400); RED BLOOD CELL COUNT 2.76 mill/uL (4.2-5.4); RED CELL DISTRIBUTION WIDTH 23.1 % (11.6-14.6)
[2022-02-23] MEDS: LACTULOSE 20G/30ML UDC PO SCH ×2 (06:45→14:00)
[2022-02-23] MEDS: INSULIN LISPRO 100 UNITS/ML SUBCUT SCH ×4 (08:20→21:00)
[2022-02-23] MEDS: BLOOD SUGAR DIAGNOSTIC STRIP TEST SCH ×4 (08:35→21:12)
[2022-02-23] MEDS: SUCRALFATE 1 G/10 ML UDC PO SCH ×4 (08:51→21:23)
[2022-02-23] MEDS: FLUDROCORTISONE ACETATE 0.1MG TABLET PO SCH (08:51)
[2022-02-23] MEDS: MIDODRINE HCL 5MG TABLET PO SCH ×3 (08:51→17:43)
[2022-02-23] MEDS: PHENYLEPH/PRAMOXIN/GLYCR/PET RECTAL CREAM 26GM PR SCH ×2 (08:53→21:24)
[2022-02-23] MEDS: PANTOPRAZOLE SODIUM 40 MG/VIAL IV SCH ×2 (10:23→21:23)
[2022-02-23 17:38] LABS: HEPATITIS B SURFACE ANTIGEN NEGATIVE
[2022-02-24] VITALS (65 sets, daily range): BP systolic 79–131; BP diastolic 35–78
[2022-02-24 05:59] LABS: BASOPHILS % 0.5 % (0.0-2.0); EOSINOPHILS % 5.5 % (0.0-5.0); HEMATOCRIT. 29.5 % (36.0-48.0); HEMOGLOBIN. 9.7 g/dL (12.0-16.0); LYMPHOCYTES % 15.1 % (20.0-50.0); MEAN CORPUSCULAR HEMOGLOBIN 33.5 pg (28.0-32.0); MEAN CORPUSCULAR VOLUME 101.4 fL (81.0-99.0); MEAN PLATELET VOLUME 9.3 fl (7.4-10.4); MONOCYTES % 14.5 % (2.0-8.0); NEUTROPHILS % 64.4 % (40.0-76.0); PLATELET 88 x1000/uL (130-400); RED BLOOD CELL COUNT 2.91 mill/uL (4.2-5.4); RED CELL DISTRIBUTION WIDTH 23.9 % (11.6-14.6)
[2022-02-24] MEDS: BLOOD SUGAR DIAGNOSTIC STRIP TEST SCH ×4 (07:33→21:02)
[2022-02-24] MEDS: INSULIN LISPRO 100 UNITS/ML SUBCUT SCH ×4 (07:34→21:00)
[2022-02-24] MEDS: PANTOPRAZOLE SODIUM 40 MG/VIAL IV SCH ×2 (08:28→21:12)
[2022-02-24] MEDS: FLUDROCORTISONE ACETATE 0.1MG TABLET PO SCH (08:28)
[2022-02-24] MEDS: LACTULOSE 20G/30ML UDC PO SCH ×2 (08:28→18:11)
[2022-02-24] MEDS: SUCRALFATE 1 G/10 ML UDC PO SCH ×4 (08:28→21:12)
[2022-02-24] MEDS: PHENYLEPH/PRAMOXIN/GLYCR/PET RECTAL CREAM 26GM PR SCH ×2 (08:29→21:13)
[2022-02-24] MEDS: MIDODRINE HCL 5MG TABLET PO SCH ×3 (08:29→18:12)
[2022-02-25] VITALS (106 sets, daily range): BP systolic 65–123; BP diastolic 21–93
[2022-02-25 05:44] LABS: HEMATOCRIT. 27.9 % (36.0-48.0); HEMOGLOBIN. 9.4 g/dL (12.0-16.0); MEAN CORPUSCULAR HEMOGLOBIN 33.8 pg (28.0-32.0); MEAN CORPUSCULAR VOLUME 100.8 fL (81.0-99.0); MEAN PLATELET VOLUME 8.6 fl (7.4-10.4); PLATELET 69 x1000/uL (130-400); RED BLOOD CELL COUNT 2.77 mill/uL (4.2-5.4); RED CELL DISTRIBUTION WIDTH 23.6 % (11.6-14.6)
[2022-02-25] MEDS: INSULIN LISPRO 100 UNITS/ML SUBCUT SCH ×4 (08:06→21:00)
[2022-02-25] MEDS: BLOOD SUGAR DIAGNOSTIC STRIP TEST SCH ×4 (08:06→21:33)
[2022-02-25] MEDS ORDERED: POTASSIUM CHLORIDE INJ 30 MEQ in DEXT 5% WATER 250 ML IV ONE (08:30)
[2022-02-25] MEDS: PHENYLEPH/PRAMOXIN/GLYCR/PET RECTAL CREAM 26GM PR SCH ×2 (09:00→21:44)
[2022-02-25] MEDS ORDERED: NOREPINEPHRINE 8MG/250ML PMX 250 ML IV PRN (09:00)
[2022-02-25] MEDS: PHENYLEPHRINE 100 MG in DEXT 5% WATER 240 ML IV PRN (09:24)
[2022-02-25 09:47] LABS: BG BASE EXCESS 2.4 mmol/L (-2.0-2.0); BG CARBOXYHEMOGLOBIN 0.1 % (0.5-1.5); BG FRACTION INSPIRED OXYGEN 32; BG HCO3 ACT 24.7 mmol/L (22.0-26.0); BG METHEMOGLOBIN 0.3 % (0.0-1.5); BG OXYGEN SATURATION 82.9 % (92.0-98.5); BG OXYHEMOGLOBIN 82.6 % (94.0-97.0); BG PCO2 30.3 mmHg (35.0-45.0); BG PH 7.529 (7.350-7.450); BG PO2 42.5 mmHg (75.0-100.0); BG SAMPLE SITE RIGHT RADIAL; BG TOTAL HEMOGLOBIN 10.2 g/dL (12.0-18.0); BG VENT MODE NASAL CANNULA
[2022-02-25] MEDS: LACTULOSE 20G/30ML UDC PO SCH ×3 (11:23→23:56)
[2022-02-25] MEDS: SUCRALFATE 1 G/10 ML UDC PO SCH ×4 (11:23→21:44)
[2022-02-25] MEDS: KCL 10MEQ/50ML X 3 FOR TOTAL KCL 30MEQ/150ML IV SCH ×3 (11:23→15:17)
[2022-02-25] MEDS: PANTOPRAZOLE SODIUM 40 MG/VIAL IV SCH ×2 (11:23→21:43)
[2022-02-25] MEDS: MIDODRINE HCL 5MG TABLET PO SCH ×3 (11:23→17:23)
[2022-02-25] MEDS: FLUDROCORTISONE ACETATE 0.1MG TABLET PO SCH (11:24)
[2022-02-25] MEDS: ACETAMINOPHEN 325MG TABLET PO PRN ×2 (13:54→21:44)
[2022-02-25 16:52] LABS: PLATELET ESTIMATE DECREASED
[2022-02-25] MEDS: MEROPENEM 500 MG in SODIUM CHLORIDE 0.9% 50 ML IV SCH (17:23)
[2022-02-25] MEDS: RIFAXIMIN 550 MG TABLET PO SCH (21:44)
[2022-02-26] VITALS (77 sets, daily range): BP systolic 67–115; BP diastolic 23–72
[2022-02-26] MEDS: SUCRALFATE 1 G/10 ML UDC PO SCH ×4 (07:50→21:28)
[2022-02-26] MEDS: BLOOD SUGAR DIAGNOSTIC STRIP TEST SCH ×4 (07:50→21:29)
[2022-02-26] MEDS: INSULIN LISPRO 100 UNITS/ML SUBCUT SCH ×4 (08:20→21:57)
[2022-02-26] MEDS: PHENYLEPH/PRAMOXIN/GLYCR/PET RECTAL CREAM 26GM PR SCH ×2 (09:00→21:29)
[2022-02-26] MEDS: FLUDROCORTISONE ACETATE 0.1MG TABLET PO SCH (09:00)
[2022-02-26] MEDS: MIDODRINE HCL 5MG TABLET PO SCH ×3 (09:00→17:26)
[2022-02-26] MEDS: PANTOPRAZOLE SODIUM 40 MG/VIAL IV SCH ×2 (09:00→21:28)
[2022-02-26 11:58] LABS: HEMATOCRIT. 29.2 % (36.0-48.0); MEAN CORPUSCULAR HEMOGLOBIN 34.4 pg (28.0-32.0); MEAN CORPUSCULAR VOLUME 100.1 fL (81.0-99.0); MEAN PLATELET VOLUME 8.7 fl (7.4-10.4); PLATELET 82 x1000/uL (130-400); RED BLOOD CELL COUNT 2.91 mill/uL (4.2-5.4); RED CELL DISTRIBUTION WIDTH 24.2 % (11.6-14.6)
[2022-02-26] MEDS: RIFAXIMIN 550 MG TABLET PO SCH ×2 (12:53→21:28)
[2022-02-26] MEDS: LACTULOSE 20G/30ML UDC PO SCH ×2 (12:53→17:26)
[2022-02-26 16:50] LABS: PLATELET ESTIMATE DECREASED
[2022-02-26] MEDS: MEROPENEM 500 MG in SODIUM CHLORIDE 0.9% 50 ML IV SCH (17:26)
[2022-02-26 21:43] LABS: HEPATITIS B SURFACE ANTIGEN NEGATIVE
[2022-02-27] VITALS (98 sets, daily range): BP systolic 51–123; BP diastolic 33–64
[2022-02-27] MEDS: LACTULOSE 20G/30ML UDC PO SCH ×3 (00:33→12:33)
[2022-02-27] MEDS: PHENYLEPHRINE 100 MG in DEXT 5% WATER 240 ML IV PRN ×2 (05:18→14:28)
[2022-02-27 05:50] LABS: HEMATOCRIT. 27.7 % (36.0-48.0); HEMOGLOBIN. 9.3 g/dL (12.0-16.0); MEAN CORPUSCULAR HEMOGLOBIN 33.9 pg (28.0-32.0); MEAN CORPUSCULAR VOLUME 101.3 fL (81.0-99.0); PLATELET 68 x1000/uL (130-400); RED BLOOD CELL COUNT 2.74 mill/uL (4.2-5.4); RED CELL DISTRIBUTION WIDTH 24.6 % (11.6-14.6)
[2022-02-27] MEDS: BLOOD SUGAR DIAGNOSTIC STRIP TEST SCH ×4 (07:50→21:00)
[2022-02-27] MEDS: INSULIN LISPRO 100 UNITS/ML SUBCUT SCH ×4 (07:50→21:00)
[2022-02-27] MEDS: PHENYLEPH/PRAMOXIN/GLYCR/PET RECTAL CREAM 26GM PR SCH ×2 (09:00→21:00)
[2022-02-27] MEDS: PANTOPRAZOLE SODIUM 40 MG/VIAL IV SCH ×2 (09:00→21:00)
[2022-02-27] MEDS: SUCRALFATE 1 G/10 ML UDC PO SCH ×4 (10:39→21:00)
[2022-02-27] MEDS: MIDODRINE HCL 5MG TABLET PO SCH ×2 (10:39→14:31)
[2022-02-27] MEDS: RIFAXIMIN 550 MG TABLET PO SCH ×2 (10:39→21:00)
[2022-02-27] MEDS: ALBUMIN HUMAN 25GM/100ML (25%) IV PRN (10:39)
[2022-02-27] MEDS: FLUDROCORTISONE ACETATE 0.1MG TABLET PO SCH (10:40)
[2022-02-27 12:15] LABS: BG FRACTION INSPIRED OXYGEN 32; BG SAMPLE SITE Left Radial; BG VENT MODE Nasal Cannula
[2022-02-27 12:16] LABS: BG HCO3 ACT 22.8 mmol/L (22.0-26.0); BG PCO2 29.3 mmHg (35.0-45.0); BG PH 7.509 (7.350-7.450); BG PO2 134.7 mmHg (75.0-100.0)
[2022-02-27 12:17] LABS: BG BASE EXCESS 0.4 mmol/L (-2.0-2.0); BG CARBOXYHEMOGLOBIN 0.3 % (0.5-1.5); BG DEOXYHEMOGLOBIN 1.4 % (0.0-5.0); BG METHEMOGLOBIN 0.4 % (0.0-1.5); BG OXYGEN SATURATION 98.6 % (92.0-98.5); BG OXYHEMOGLOBIN 97.9 % (94.0-97.0); BG TOTAL HEMOGLOBIN 10.2 g/dL (12.0-18.0)
[2022-02-27] MEDS: KCL 20MEQ/100ML PREMIX 100 ML IV SCH ×2 (12:37→15:01)
[2022-02-27] MEDS ORDERED: MIDODRINE HCL 5MG TABLET PO SCH (17:00)
[2022-02-27] MEDS ORDERED: KCL 20MEQ/100ML PREMIX 100 ML IV NR (17:15)
[2022-02-27] MEDS: MEROPENEM 500 MG in SODIUM CHLORIDE 0.9% 50 ML IV SCH (17:45)
[2022-02-27] MEDS ORDERED: LACTULOSE 20G/30ML UDC PO SCH (20:00)
[2022-02-28] VITALS (88 sets, daily range): BP systolic 77–117; BP diastolic 35–79
[2022-02-28 06:57] LABS: PLATELET ESTIMATE DECREASED
[2022-02-28] MEDS: BLOOD SUGAR DIAGNOSTIC STRIP TEST SCH ×4 (07:50→21:33)
[2022-02-28] MEDS: INSULIN LISPRO 100 UNITS/ML SUBCUT SCH ×4 (08:20→21:00)
[2022-02-28] MEDS ORDERED: LACTULOSE 20G/30ML UDC PO SCH (09:00)
[2022-02-28] MEDS: FLUDROCORTISONE ACETATE 0.1MG TABLET PO SCH (09:15)
[2022-02-28] MEDS: RIFAXIMIN 550 MG TABLET PO SCH ×2 (09:15→21:57)
[2022-02-28] MEDS: SUCRALFATE 1 G/10 ML UDC PO SCH ×4 (09:15→21:57)
[2022-02-28] MEDS: PHENYLEPH/PRAMOXIN/GLYCR/PET RECTAL CREAM 26GM PR SCH ×2 (10:41→21:58)
[2022-02-28] MEDS: MIDODRINE HCL 5MG TABLET PO SCH ×3 (10:41→17:03)
[2022-02-28] MEDS: PANTOPRAZOLE SODIUM 40 MG/VIAL IV SCH ×2 (10:42→21:55)
[2022-02-28] MEDS: ACETAMINOPHEN 325MG TABLET PO PRN (15:22)
[2022-02-28] MEDS ORDERED: NALOXONE HCL 0.4MG/ML VIAL IV PRN (17:00)
[2022-02-28] MEDS: MEROPENEM 500 MG in SODIUM CHLORIDE 0.9% 50 ML IV SCH (17:02)
[2022-02-28] MEDS: HYDROCODONE/ACETAMINOPHEN 5/325MG TABLET PO PRN (17:03)
[2022-02-28] MEDS: PHENYLEPHRINE 100 MG in DEXT 5% WATER 240 ML IV PRN (18:41)
[2022-03-01] VITALS (41 sets, daily range): BP systolic 77–125; BP diastolic 23–77
[2022-03-01] MEDS: BLOOD SUGAR DIAGNOSTIC STRIP TEST SCH ×4 (07:50→21:04)
[2022-03-01] MEDS: INSULIN LISPRO 100 UNITS/ML SUBCUT SCH ×4 (08:20→21:04)
[2022-03-01] MEDS: SUCRALFATE 1 G/10 ML UDC PO SCH ×4 (09:17→21:02)
[2022-03-01] MEDS: RIFAXIMIN 550 MG TABLET PO SCH ×2 (09:17→21:03)
[2022-03-01] MEDS: FLUDROCORTISONE ACETATE 0.1MG TABLET PO SCH (09:17)
[2022-03-01] MEDS: PANTOPRAZOLE SODIUM 40 MG/VIAL IV SCH ×2 (09:17→21:02)
[2022-03-01] MEDS: MIDODRINE HCL 5MG TABLET PO SCH ×3 (09:17→17:47)
[2022-03-01] MEDS: PHENYLEPH/PRAMOXIN/GLYCR/PET RECTAL CREAM 26GM PR SCH ×2 (09:20→21:04)
[2022-03-01 13:28] LABS: MEAN CORPUSCULAR HEMOGLOBIN 33.3 pg (28.0-32.0); MEAN CORPUSCULAR VOLUME 103.9 fL (81.0-99.0); MEAN PLATELET VOLUME 8.3 fl (7.4-10.4); PLATELET 52 x1000/uL (130-400); RED BLOOD CELL COUNT 3.21 mill/uL (4.2-5.4); RED CELL DISTRIBUTION WIDTH 24.6 % (11.6-14.6)
[2022-03-01 13:30] LABS: HEMATOCRIT. 33.4 % (36.0-48.0); HEMOGLOBIN. 10.7 g/dL (12.0-16.0)
[2022-03-01] MEDS: HYDROCODONE/ACETAMINOPHEN 5/325MG TABLET PO PRN (13:36)
[2022-03-01 14:27] LABS: PLATELET ESTIMATE MARKEDLY DECREASED
[2022-03-01] MEDS ORDERED: MORPHINE SULFATE 2 MG/ML CPJ (NOT FOR IM USE) IV SCH (15:15)
[2022-03-01] MEDS: METOCLOPRAMIDE HCL 10MG/2ML VIAL IV SCH (17:47)
[2022-03-01] MEDS: MEROPENEM 500 MG in SODIUM CHLORIDE 0.9% 50 ML IV SCH (17:47)
[2022-03-02] VITALS (34 sets, daily range): BP systolic 77–118; BP diastolic 26–70
[2022-03-02] MEDS: METOCLOPRAMIDE HCL 10MG/2ML VIAL IV SCH ×5 (00:22→23:49)
[2022-03-02 01:08] LABS: HEPATITIS B SURFACE ANTIGEN NEGATIVE
[2022-03-02 05:41] LABS: HEMATOCRIT. 32.4 % (36.0-48.0); HEMOGLOBIN. 10.8 g/dL (12.0-16.0); MEAN CORPUSCULAR HEMOGLOBIN 33.9 pg (28.0-32.0); MEAN CORPUSCULAR VOLUME 101.9 fL (81.0-99.0); MEAN PLATELET VOLUME 8.9 fl (7.4-10.4); PLATELET 52 x1000/uL (130-400); RED BLOOD CELL COUNT 3.18 mill/uL (4.2-5.4); RED CELL DISTRIBUTION WIDTH 24.3 % (11.6-14.6)
[2022-03-02] MEDS: BLOOD SUGAR DIAGNOSTIC STRIP TEST SCH ×4 (07:09→21:00)
[2022-03-02] MEDS: INSULIN LISPRO 100 UNITS/ML SUBCUT SCH ×4 (07:10→21:00)
[2022-03-02] MEDS: PANTOPRAZOLE SODIUM 40 MG/VIAL IV SCH ×2 (08:13→20:42)
[2022-03-02] MEDS: SUCRALFATE 1 G/10 ML UDC PO SCH ×4 (08:13→20:42)
[2022-03-02] MEDS: MIDODRINE HCL 5MG TABLET PO SCH ×3 (08:13→18:33)
[2022-03-02] MEDS: PHENYLEPH/PRAMOXIN/GLYCR/PET RECTAL CREAM 26GM PR SCH ×3 (08:14→22:02)
[2022-03-02] MEDS: RIFAXIMIN 550 MG TABLET PO SCH ×2 (08:14→20:42)
[2022-03-02] MEDS: FLUDROCORTISONE ACETATE 0.1MG TABLET PO SCH (08:14)
[2022-03-02 11:11] LABS: PLATELET ESTIMATE DECREASED
[2022-03-02] MEDS ORDERED: PHENYLEPHRINE/SHK LV/MO/PET RECTAL OINTMENT 57GM PR SCH (12:30)
[2022-03-03] VITALS (41 sets, daily range): BP systolic 72–106; BP diastolic 43–75
[2022-03-03] MEDS: METOCLOPRAMIDE HCL 10MG/2ML VIAL IV SCH ×3 (05:33→17:32)
[2022-03-03] MEDS: PHENYLEPH/PRAMOXIN/GLYCR/PET RECTAL CREAM 26GM PR SCH ×3 (05:33→21:58)
[2022-03-03 06:06] LABS: HEMATOCRIT. 28.9 % (36.0-48.0); HEMOGLOBIN. 9.8 g/dL (12.0-16.0); MEAN CORPUSCULAR HEMOGLOBIN 33.8 pg (28.0-32.0); MEAN CORPUSCULAR VOLUME 100.1 fL (81.0-99.0); MEAN PLATELET VOLUME 8.4 fl (7.4-10.4); RED BLOOD CELL COUNT 2.89 mill/uL (4.2-5.4); RED CELL DISTRIBUTION WIDTH 23.9 % (11.6-14.6)
[2022-03-03 07:08] LABS: PLATELET 50 x1000/uL (130-400)
[2022-03-03] MEDS: BLOOD SUGAR DIAGNOSTIC STRIP TEST SCH ×4 (07:50→21:02)
[2022-03-03] MEDS: INSULIN LISPRO 100 UNITS/ML SUBCUT SCH ×4 (08:20→21:10)
[2022-03-03] MEDS: PANTOPRAZOLE SODIUM 40 MG/VIAL IV SCH ×2 (09:16→21:02)
[2022-03-03] MEDS: FLUDROCORTISONE ACETATE 0.1MG TABLET PO SCH (09:18)
[2022-03-03] MEDS: MIDODRINE HCL 5MG TABLET PO SCH ×3 (09:18→17:32)
[2022-03-03] MEDS: SUCRALFATE 1 G/10 ML UDC PO SCH ×4 (09:24→21:02)
[2022-03-03 23:00] LABS: PLATELET ESTIMATE MARKEDLY DECREASED
[2022-03-04] VITALS (59 sets, daily range): BP systolic 53–145; BP diastolic 28–84
[2022-03-04] MEDS: DEXT 5%/0.9% NACL 1,000 ML IV SCH ×2 (00:04→22:22)
[2022-03-04 03:29] LABS: HEMATOCRIT. 27.3 % (36.0-48.0); HEMOGLOBIN. 9.2 g/dL (12.0-16.0); MEAN CORPUSCULAR HEMOGLOBIN 33.8 pg (28.0-32.0); MEAN CORPUSCULAR VOLUME 100.2 fL (81.0-99.0); MEAN PLATELET VOLUME 8.1 fl (7.4-10.4); PLATELET 53 x1000/uL (130-400); RED BLOOD CELL COUNT 2.72 mill/uL (4.2-5.4); RED CELL DISTRIBUTION WIDTH 23.8 % (11.6-14.6)
[2022-03-04 03:39] LABS: INR 1.5; PROTHROMBIN TIME 15.7 sec (9.6-11.0)
[2022-03-04 04:02] LABS: PLATELET ESTIMATE MARKEDLY DECREASED
[2022-03-04] MEDS: PHENYLEPH/PRAMOXIN/GLYCR/PET RECTAL CREAM 26GM PR SCH ×3 (05:27→22:00)
[2022-03-04] MEDS: BLOOD SUGAR DIAGNOSTIC STRIP TEST SCH ×4 (07:50→21:39)
[2022-03-04] MEDS: INSULIN LISPRO 100 UNITS/ML SUBCUT SCH ×4 (08:20→22:14)
[2022-03-04] MEDS: SUCRALFATE 1 G/10 ML UDC PO SCH ×4 (08:55→22:13)
[2022-03-04] MEDS: PANTOPRAZOLE SODIUM 40 MG/VIAL IV SCH ×2 (08:55→22:13)
[2022-03-04] MEDS: FLUDROCORTISONE ACETATE 0.1MG TABLET PO SCH (08:55)
[2022-03-04] MEDS: ALBUMIN HUMAN 25GM/100ML (25%) IV PRN ×2 (08:55→13:20)
[2022-03-04] MEDS: MIDODRINE HCL 5MG TABLET PO SCH ×3 (08:56→17:55)
[2022-03-04] MEDS: SODIUM CHLORIDE 0.9% 250 ML IV NR ×2 (11:00→12:00)
[2022-03-05] VITALS (10 sets, daily range): BP systolic 92–138; BP diastolic 41–59
[2022-03-05] MEDS: PHENYLEPH/PRAMOXIN/GLYCR/PET RECTAL CREAM 26GM PR SCH ×2 (05:24→13:16)
[2022-03-05 07:02] LABS: HEMATOCRIT. 26.9 % (36.0-48.0); HEMOGLOBIN. 9.3 g/dL (12.0-16.0); MEAN CORPUSCULAR HEMOGLOBIN 34.2 pg (28.0-32.0); MEAN CORPUSCULAR VOLUME 99.3 fL (81.0-99.0); MEAN PLATELET VOLUME 8.8 fl (7.4-10.4); PLATELET 53 x1000/uL (130-400); RED BLOOD CELL COUNT 2.71 mill/uL (4.2-5.4); RED CELL DISTRIBUTION WIDTH 24.3 % (11.6-14.6)
[2022-03-05] MEDS: SUCRALFATE 1 G/10 ML UDC PO SCH ×2 (07:30→12:36)
[2022-03-05] MEDS ORDERED: POTASSIUM CHLORIDE 20MEQ/PACKET PO NR (08:00)
[2022-03-05] MEDS: INSULIN LISPRO 100 UNITS/ML SUBCUT SCH ×2 (08:00→11:31)
[2022-03-05] MEDS: BLOOD SUGAR DIAGNOSTIC STRIP TEST SCH ×2 (08:15→11:31)
[2022-03-05 08:56] LABS: PLATELET ESTIMATE MARKEDLY DECREASED
[2022-03-05] MEDS: FLUDROCORTISONE ACETATE 0.1MG TABLET PO SCH (09:16)
[2022-03-05] MEDS: PANTOPRAZOLE SODIUM 40 MG/VIAL IV SCH (09:16)
[2022-03-05] MEDS: MIDODRINE HCL 5MG TABLET PO SCH ×2 (09:18→12:36)
[2022-03-05 17:40] LABS: HEPATITIS B SURFACE ANTIGEN NEGATIVE
== END 2022-03-05 18:39 | disposition home health service (06) | DRG 377 ==
LOC: ER 18:30 → MICUSO 02-12 00:40 → CVICU 02-12 11:30 → 5EST 03-04 18:45
PROVIDERS: ADMIT Internal Medicine; ATTEND Internal Medicine
PROC: 30233N1 Transfusion of Nonautologous Red Blood Cells into Peripheral Vein, Percutaneous Approach (ICD-10-PCS; 2022-02-11)
PROC: 02HV33Z Insertion of Infusion Device into Superior Vena Cava, Percutaneous Approach (ICD-10-PCS; 2022-02-12)
PROC: B548ZZA Ultrasonography of Superior Vena Cava, Guidance (ICD-10-PCS; 2022-02-12)
PROC: 5A1D70Z Performance of Urinary Filtration, Intermittent, Less than 6 Hours Per Day (ICD-10-PCS; principal; 2022-02-13)
PROC: 0W9G3ZZ Drainage of Peritoneal Cavity, Percutaneous Approach (ICD-10-PCS; 2022-02-13)
PROC: 06L38CZ Occlusion of Esophageal Vein with Extraluminal Device, Via Natural or Artificial Opening Endoscopic (ICD-10-PCS; 2022-02-16)
PROC: 0DB78ZX Excision of Stomach, Pylorus, Via Natural or Artificial Opening Endoscopic, Diagnostic (ICD-10-PCS; 2022-02-16)
PROC: 0DJD8ZZ Inspection of Lower Intestinal Tract, Via Natural or Artificial Opening Endoscopic (ICD-10-PCS; 2022-02-16)
PROC: 5A1D70Z Performance of Urinary Filtration, Intermittent, Less than 6 Hours Per Day (ICD-10-PCS; 2022-02-17)
PROC: 5A1D70Z Performance of Urinary Filtration, Intermittent, Less than 6 Hours Per Day (ICD-10-PCS; 2022-02-20)
PROC: 0W9G3ZZ Drainage of Peritoneal Cavity, Percutaneous Approach (ICD-10-PCS; 2022-02-21)
PROC: 5A1D70Z Performance of Urinary Filtration, Intermittent, Less than 6 Hours Per Day (ICD-10-PCS; 2022-02-24)
PROC: 5A1D70Z Performance of Urinary Filtration, Intermittent, Less than 6 Hours Per Day (ICD-10-PCS; 2022-02-25)
PROC: 5A1D70Z Performance of Urinary Filtration, Intermittent, Less than 6 Hours Per Day (ICD-10-PCS; 2022-02-27)
PROC: 5A1D70Z Performance of Urinary Filtration, Intermittent, Less than 6 Hours Per Day (ICD-10-PCS; 2022-03-02)
PROC: 5A1D70Z Performance of Urinary Filtration, Intermittent, Less than 6 Hours Per Day (ICD-10-PCS; 2022-03-04)
PROC: 0W9G3ZZ Drainage of Peritoneal Cavity, Percutaneous Approach (ICD-10-PCS; 2022-03-04)
DX: K29.51 Unspecified chronic gastritis with bleeding (principal); E43 Unspecified severe protein-calorie malnutrition; N18.6 End stage renal disease; N17.0 Acute kidney failure with tubular necrosis; D62 Acute posthemorrhagic anemia; K76.6 Portal hypertension; R18.8 Other ascites; G93.40 Encephalopathy, unspecified; I47.1 Supraventricular tachycardia; Q43.8 Other specified congenital malformations of intestine; Z68.1 Body mass index [BMI] 19.9 or less, adult; D68.9 Coagulation defect, unspecified; E87.1 Hypo-osmolality and hyponatremia; I12.0 Hypertensive chronic kidney disease with stage 5 chronic kidney disease or end stage renal disease; I85.10 Secondary esophageal varices without bleeding; K74.60 Unspecified cirrhosis of liver; D53.9 Nutritional anemia, unspecified; E87.6 Hypokalemia; D69.59 Other secondary thrombocytopenia; E11.22 Type 2 diabetes mellitus with diabetic chronic kidney disease; E78.00 Pure hypercholesterolemia, unspecified; I27.20 Pulmonary hypertension, unspecified; I95.89 Other hypotension; I48.0 Paroxysmal atrial fibrillation; K31.89 Other diseases of stomach and duodenum; Z20.822 Contact with and (suspected) exposure to COVID-19; E87.5 Hyperkalemia; K31.A0 Gastric intestinal metaplasia, unspecified; K40.90 Unilateral inguinal hernia, without obstruction or gangrene, not specified as recurrent; I34.0 Nonrheumatic mitral (valve) insufficiency; R09.02 Hypoxemia; K72.90 Hepatic failure, unspecified without coma; K44.9 Diaphragmatic hernia without obstruction or gangrene; K62.3 Rectal prolapse; K64.8 Other hemorrhoids; K64.4 Residual hemorrhoidal skin tags; Z79.899 Other long term (current) drug therapy; Z99.2 Dependence on renal dialysis
CPT/HCPCS: 36415; 36573; 36600; 49083; 71045; 71275; 74018; 74176; 76700; 76705; 78278; 80048; 80053; 80076; 82010; 82040; 82140; 82248; 82270; 82375; 82550; 82553; 82607; 82728; 82746; 82805; 82962; 83036; 83540; 83550; 83615; 83735; 84100; 84132; 84145; 84443; 84484; 85014; 85018; 85025; 85044; 85049; 86705; 86709; 86803; 86850; 86900; 86920; 87015; 87045; 87340; 87426; 87427; 87449; 88108; 88305; 88312; 88313; 89055; 90732; 93005; 93306; 97162; 97166; 97530; 97535; 99291; A9560; C1725; C9113; J0885; J1100; J1815; J2185; J2270; J2370; J2405; J2543; J2704; J2765; J3480; J3490; J7042; J7060; P9016; P9047